=== PATIENT | female | born 1965 | race African-American/Black ===

== ENCOUNTER 2018-02-16 12:34 | Inpatient (IN) | payer OTHER ==
[~2018-02-16] VITALS: Ht 170.2 cm; Wt 92.5 kg
[~2018-02-16 12:34] MED LIST: LEVO125T PO
[2018-02-16] MEDS ORDERED: IBUPROFEN 600MG TABLET PO ONE (14:15)
[2018-02-16] MEDS ORDERED: MORPHINE SULFATE 10 MG/ML CPJ IM ONE (18:45)
[2018-02-16 19:33] LABS: BASOPHILS % 0.9 % (0.0-2.0); EOSINOPHILS % 10.3 % (0.0-5.0); HEMATOCRIT. 43.4 % (36.0-48.0); HEMOGLOBIN. 14.3 g/dL (12.0-16.0); LYMPHOCYTES % 19.8 % (20.0-50.0); MEAN CORPUSCULAR HEMOGLOBIN 31.1 pg (28.0-32.0); MEAN CORPUSCULAR VOLUME 94.3 fL (81.0-99.0); MEAN PLATELET VOLUME 8.4 fl (7.4-10.4); MONOCYTES % 2.3 % (2.0-8.0); NEUTROPHILS % 66.7 % (40.0-76.0); PLATELET 198 x1000/uL (130-400)
[2018-02-16 19:35] LABS: CHLORIDE 106 mEq/L (98-107)
[2018-02-16 19:36] LABS: INR 1.1
[2018-02-16 19:47] LABS: CLARITY URINE CLEAR (CLEAR); COLOR URINE YELLOW (YELLOW); KETONES URINE NEGATIVE (NEGATIVE); LEUKOCYTE ESTERASE URINE NEGATIVE (NEGATIVE); NITRITE URINE NEGATIVE (NEGATIVE); OCCULT BLOOD URINE NEGATIVE (NEGATIVE); PROTEIN URINE NEGATIVE (NEGATIVE); SPECIFIC GRAVITY URINE 1.012 (1.005-1.030); UROBILINOGEN URINE 0.2 E.U./dL (0.2-1.0)
[2018-02-16] MEDS ORDERED: HYDROCODONE/ACETAMINOPHEN 5/325MG TABLET PO ONE (22:45)
[2018-02-17] MEDS ORDERED: MAGNESIUM/ALUMINUM HYDROXIDE/SIMETHICONE 30ML UDC PO PRN (00:15)
[2018-02-17] MEDS ORDERED: DOCUSATE SODIUM 100MG CAPSULE PO PRN (00:15)
[2018-02-17] MEDS ORDERED: ACETAMINOPHEN 325MG TABLET PO PRN (00:15)
[2018-02-17] MEDS ORDERED: ENOXAPARIN 40MG/0.4ML SYR SUBCUT SCH (00:15)
[2018-02-17] MEDS ORDERED: ONDANSETRON HCL 4MG/2ML INJ IV PRN (00:15)
[2018-02-17 05:54] LABS: CHLORIDE 107 mEq/L (98-107)
[2018-02-17 06:04] LABS: CREATINE KINASE 122 IU/L (26-192)
[2018-02-17 06:06] LABS: CREATINE KINASE MB FRACTION 1.3 ng/mL (0.5-3.6)
[2018-02-17 08:00] VITALS: BP 172/86
[2018-02-17] MEDS: HYDROCODONE/ACETAMINOPHEN 5/325MG TABLET PO PRN ×2 (08:36→20:26)
[2018-02-17] MEDS: ENOXAPARIN 30MG/0.3ML SYR SUBCUT SCH ×2 (09:18→21:41)
[2018-02-17] MEDS: CLONIDINE 0.1MG TABLET PO PRN ×2 (09:19→20:26)
[2018-02-17 09:59] VITALS: BP 172/86
[2018-02-17 11:27] LABS: *BARBITURATES SCREEN URINE NEGATIVE (NEGATIVE); *BENZODIAZEPINES SCREEN URINE NEGATIVE (NEGATIVE); *COCAINE SCREEN URINE PRESUMTIVE POSITIVE (NEGATIVE); OPIATES URINE SCREEN NEGATIVE (NEGATIVE)
[2018-02-17 11:28] LABS: CANNABINOID URINE SCREEN NEGATIVE (NEGATIVE); PHENCYCLIDINE URINE SCREEN NEGATIVE (NEGATIVE)
[2018-02-17 11:36] LABS: *AMPHETAMINES SCREEN URINE NEGATIVE (NEGATIVE); METHADONE URINE SCREEN NEGATIVE (NEGATIVE)
[2018-02-17 12:00] VITALS: BP 156/74
[2018-02-17 16:00] VITALS: BP_SYST 115; BP_SYST 151; BP_DIAS 72; BP_DIAS 73
[2018-02-17 17:29] LABS: CREATINE KINASE 105 IU/L (26-192); CREATINE KINASE MB FRACTION < 1.0 ng/mL (0.5-3.6)
[2018-02-17 20:00] VITALS: BP 164/80
[2018-02-18] VITALS: BP 146/79
[2018-02-18] MEDS: HYDROCODONE/ACETAMINOPHEN 5/325MG TABLET PO PRN ×3 (01:29→20:15)
[2018-02-18] MEDS: IPRATROPIUM/ALBUTEROL 0.5-3(2.5)MG/3ML NEB INH PRN (03:46)
[2018-02-18 04:00] VITALS: BP 166/88
[2018-02-18 07:31] LABS: HEMATOCRIT. 39.2 % (36.0-48.0); HEMOGLOBIN. 13.3 g/dL (12.0-16.0); MEAN CORPUSCULAR HEMOGLOBIN 31.6 pg (28.0-32.0); MEAN CORPUSCULAR VOLUME 92.9 fL (81.0-99.0); MEAN PLATELET VOLUME 7.9 fl (7.4-10.4); PLATELET 171 x1000/uL (130-400); RED BLOOD CELL COUNT 4.22 mill/uL (4.2-5.4)
[2018-02-18 08:00] VITALS: BP 171/102
[2018-02-18] MEDS: ENOXAPARIN 30MG/0.3ML SYR SUBCUT SCH ×2 (08:24→20:14)
[2018-02-18] MEDS: CLONIDINE 0.1MG TABLET PO PRN (09:01)
[2018-02-18 09:03] LABS: PLATELET ESTIMATE NORMAL
[2018-02-18] MEDS: AMLODIPINE 5MG TABLET PO SCH ×2 (09:18→20:14)
[2018-02-18] MEDS: LEVOTHYROXINE SODIUM 125MCG TABLET PO SCH (11:25)
[2018-02-18 12:00] VITALS: BP 162/81
[2018-02-18 16:00] VITALS: BP 152/62
[2018-02-18 20:00] VITALS: BP 148/92
[2018-02-19] VITALS (7 sets, daily range): BP systolic 106–165; BP diastolic 76–103
[2018-02-19] MEDS: HYDROCODONE/ACETAMINOPHEN 5/325MG TABLET PO PRN ×3 (00:33→08:44)
[2018-02-19] MEDS: LEVOTHYROXINE SODIUM 125MCG TABLET PO SCH (06:21)
[2018-02-19] MEDS: CLONIDINE 0.1MG TABLET PO PRN (08:43)
[2018-02-19] MEDS: AMLODIPINE 5MG TABLET PO SCH ×2 (08:43→20:56)
[2018-02-19] MEDS: ENOXAPARIN 30MG/0.3ML SYR SUBCUT SCH ×2 (08:44→20:56)
[2018-02-19] MEDS: HYDROCODONE/ACETAMINOPHEN 10/325MG TABLET PO PRN (18:14)
[2018-02-19] MEDS: FUROSEMIDE 40MG TABLET PO SCH (18:40)
[2018-02-19] MEDS: IPRATROPIUM/ALBUTEROL 0.5-3(2.5)MG/3ML NEB INH PRN (21:32)
[2018-02-20] VITALS: BP 163/100
[2018-02-20] MEDS: CLONIDINE 0.1MG TABLET PO PRN (03:09)
[2018-02-20] MEDS: HYDROCODONE/ACETAMINOPHEN 10/325MG TABLET PO PRN ×2 (03:09→08:44)
[2018-02-20 04:00] VITALS: BP 152/99
[2018-02-20] MEDS: LEVOTHYROXINE SODIUM 125MCG TABLET PO SCH (06:23)
[2018-02-20 06:52] LABS: BASOPHILS % 1.1 % (0.0-2.0); EOSINOPHILS % 11.1 % (0.0-5.0); HEMATOCRIT. 40.9 % (36.0-48.0); HEMOGLOBIN. 13.8 g/dL (12.0-16.0); LYMPHOCYTES % 19.2 % (20.0-50.0); MEAN CORPUSCULAR HEMOGLOBIN 31.3 pg (28.0-32.0); MEAN CORPUSCULAR VOLUME 92.9 fL (81.0-99.0); MEAN PLATELET VOLUME 7.9 fl (7.4-10.4); NEUTROPHILS % 66.6 % (40.0-76.0); PLATELET 196 x1000/uL (130-400); RED CELL DISTRIBUTION WIDTH 14.7 % (11.6-14.6)
[2018-02-20 06:58] LABS: CHLORIDE 102 mEq/L (98-107)
[2018-02-20 08:00] VITALS: BP 146/78
[2018-02-20 08:44] VITALS: BP 146/78
[2018-02-20] MEDS: AMLODIPINE 5MG TABLET PO SCH (08:44)
[2018-02-20] MEDS: FUROSEMIDE 40MG TABLET PO SCH (08:44)
[2018-02-20] MEDS: ENOXAPARIN 30MG/0.3ML SYR SUBCUT SCH (08:45)
== END 2018-02-20 12:05 | disposition left against medical advice (07) | DRG 342 ==
LOC: ER 12:55 → EDBEDREQTM 18:52 → EDBEDREQ 18:52 → ENRESERV 02-17 07:59 → CANRESERV 02-17 07:59 → ENRESERV 02-17 08:03 → 6EST 02-17 08:36
PROVIDERS: ADMIT Internal Medicine; ATTEND Internal Medicine
DX: S82.031A Displaced transverse fracture of right patella, initial encounter for closed fracture (principal); I11.0 Hypertensive heart disease with heart failure; I50.9 Heart failure, unspecified; E03.9 Hypothyroidism, unspecified; E66.9 Obesity, unspecified; Z53.21 Procedure and treatment not carried out due to patient leaving prior to being seen by health care provider; J44.9 Chronic obstructive pulmonary disease, unspecified; F14.90 Cocaine use, unspecified, uncomplicated; W19.XXXA Unspecified fall, initial encounter; W18.39XA Other fall on same level, initial encounter; Y93.89 Activity, other specified; Y92.89 Other specified places as the place of occurrence of the external cause; Y99.8 Other external cause status; Z68.32 Body mass index [BMI] 32.0-32.9, adult
CPT/HCPCS: 36415; 73560; 80048; 80061; 80305; 82550; 82553; 83735; 84484; 93970; 94640; 96372; 99285; J1650; J2270; J7620; L1830

== ENCOUNTER 2019-04-21 19:05 | Emergency (ER) | payer OTHER ==
[~2019-04-21] VITALS: Ht 170.2 cm; Wt 89.0 kg
[2019-04-21] MEDS ORDERED: IPRATROPIUM/ALBUTEROL 0.5-3(2.5)MG/3ML NEB HHN ONE (21:00)
[2019-04-21 21:15] LABS: CLARITY URINE CLEAR (CLEAR); COLOR URINE YELLOW (YELLOW); KETONES URINE NEGATIVE (NEGATIVE); LEUKOCYTE ESTERASE URINE NEGATIVE (NEGATIVE); NITRITE URINE NEGATIVE (NEGATIVE); OCCULT BLOOD URINE TRACE (NEGATIVE); PROTEIN URINE TRACE (NEGATIVE); SPECIFIC GRAVITY URINE 1.011 (1.005-1.030); UROBILINOGEN URINE 0.2 E.U./dL (0.2-1.0)
[2019-04-21] MEDS ORDERED: METHYLPREDNISOLONE 4MG TABLET PO ONE (21:15)
[2019-04-21 21:36] LABS: *AMPHETAMINES SCREEN URINE NEGATIVE (NEGATIVE); CANNABINOID URINE SCREEN NEGATIVE (NEGATIVE); OPIATES URINE SCREEN NEGATIVE (NEGATIVE); PHENCYCLIDINE URINE SCREEN NEGATIVE (NEGATIVE)
[2019-04-21 21:37] LABS: *BARBITURATES SCREEN URINE NEGATIVE (NEGATIVE); *BENZODIAZEPINES SCREEN URINE NEGATIVE (NEGATIVE); *COCAINE SCREEN URINE PRESUMTIVE POSITIVE (NEGATIVE); METHADONE URINE SCREEN NEGATIVE (NEGATIVE)
[2019-04-21 21:39] VITALS: BP 143/73
[2019-04-21 21:39] LABS: HEMATOCRIT. 55.3 % (36.0-48.0); HEMOGLOBIN. 18.5 g/dL (12.0-16.0); MEAN CORPUSCULAR HEMOGLOBIN 31.6 pg (28.0-32.0); MEAN CORPUSCULAR VOLUME 94.4 fL (81.0-99.0); MEAN PLATELET VOLUME 9.2 fl (7.4-10.4); PLATELET 179 x1000/uL (130-400); RED BLOOD CELL COUNT 5.85 mill/uL (4.2-5.4); RED CELL DISTRIBUTION WIDTH 15.3 % (11.6-14.6)
[2019-04-21 21:44] LABS: CHLORIDE 103 mEq/L (98-107)
[2019-04-21 22:04] LABS: PLATELET ESTIMATE NORMAL
[2019-04-22] MEDS ORDERED: FUROSEMIDE 40MG TABLET PO ONE (03:00)
== END 2019-04-22 00:24 | disposition left against medical advice (07) ==
LOC: ER 19:05 → EDBEDREQ 23:01 → EDBEDREQTM 23:01 → ER 04-22 00:24 → CANBEDREQ 04-22 00:54
DX: J96.00 Acute respiratory failure, unspecified whether with hypoxia or hypercapnia (principal); I50.43 Acute on chronic combined systolic (congestive) and diastolic (congestive) heart failure; E87.2 Acidosis; E86.0 Dehydration; J44.1 Chronic obstructive pulmonary disease with (acute) exacerbation; D75.1 Secondary polycythemia; R60.0 Localized edema; K21.9 Gastro-esophageal reflux disease without esophagitis; F14.129 Cocaine abuse with intoxication, unspecified; R74.0 Nonspecific elevation of levels of transaminase and lactic acid dehydrogenase [LDH]; F41.9 Anxiety disorder, unspecified; F17.210 Nicotine dependence, cigarettes, uncomplicated; M19.90 Unspecified osteoarthritis, unspecified site; F15.10 Other stimulant abuse, uncomplicated
CPT/HCPCS: 36415; 71045; 80053; 80305; 81003; 83880; 84484; 85025; 93005; 94640; 99285; J7509; J7610; Z7610

== ENCOUNTER 2019-06-20 04:59 | Inpatient (IN) | payer OTHER ==
[~2019-06-20] VITALS: Ht 172.7 cm; Wt 84.8 kg
[2019-06-20] MEDS ORDERED: IPRATROPIUM BROMIDE (0.02%) 0.5MG/2.5ML NEB HHN STA (05:14)
[2019-06-20] MEDS ORDERED: METHYLPREDNISOLONE SOD SUCC 125 MG/2 ML VIAL IV STA (05:14)
[2019-06-20] MEDS ORDERED: ALBUTEROL (0.083%) 2.5MG/3ML NEB HHN STA (05:14)
[2019-06-20] MEDS ORDERED: MAGNESIUM 2 G PREMIX 50 ML IV STA (05:14)
[2019-06-20] MEDS ORDERED: LABETALOL HCL 20MG/4ML CARPUJECT IV ONE (05:45)
[2019-06-20 06:07] LABS: HEMOGLOBIN 17.5 g/dL (12.0-16.0); MEAN CORPUSCULAR HEMOGLOBIN 30.8 pg (28.0-32.0); MEAN CORPUSCULAR VOLUME 93.4 fL (81.0-99.0); PLATELET 207 x1000/uL (130-400); RED BLOOD CELL COUNT 5.67 mill/uL (4.2-5.4); RED CELL DISTRIBUTION WIDTH 15.8 % (11.6-14.6)
[2019-06-20 06:16] LABS: CHLORIDE 112 mEq/L (98-107)
[2019-06-20] MEDS ORDERED: CLONIDINE 0.1MG TABLET PO ONE (10:15)
[2019-06-20] MEDS ORDERED: ACETAMINOPHEN 325MG TABLET PO PRN (10:45)
[2019-06-20] MEDS ORDERED: IPRATROPIUM/ALBUTEROL 0.5-3(2.5)MG/3ML NEB HHN PRN (10:45)
[2019-06-20 11:35] VITALS: BP 180/89
[2019-06-20 11:41] VITALS: BP 180/89
[2019-06-20] MEDS ORDERED: PNEUMOCOCCAL 23-VAL P-SAC VAC 0.5 ML IM ONE (12:30)
[2019-06-20] MEDS ORDERED: INFLUENZA VIRUS VACCINE(AFLURIA) 0.5ML SYR IM ONE (12:30)
[2019-06-20] MEDS: HYDRALAZINE HCL 50MG TABLET PO SCH ×2 (13:31→21:07)
[2019-06-20] MEDS: LOSARTAN POTASSIUM 100 MG TABLET PO SCH (13:31)
[2019-06-20] MEDS: ENOXAPARIN 40MG/0.4ML SYR SUBCUT SCH (13:32)
[2019-06-20 18:10] VITALS: BP 157/100
[2019-06-20] MEDS: FUROSEMIDE 40MG/4ML VIAL IVP SCH (18:33)
[2019-06-20 20:00] VITALS: BP 173/83
[2019-06-20] MEDS: CARVEDILOL 12.5MG TABLET PO SCH (20:08)
[2019-06-20] MEDS ORDERED: CARVEDILOL 12.5MG TABLET PO SCH (21:00)
[2019-06-20 22:00] VITALS: BP 146/75
[2019-06-21] VITALS (7 sets, daily range): BP systolic 90–192; BP diastolic 78–107
[2019-06-21] MEDS: CLONIDINE 0.1MG TABLET PO PRN ×2 (04:24→16:29)
[2019-06-21] MEDS: FUROSEMIDE 40MG/4ML VIAL IVP SCH ×2 (06:25→16:38)
[2019-06-21] MEDS: HYDRALAZINE HCL 50MG TABLET PO SCH (06:25)
[2019-06-21] MEDS ORDERED: LEVOTHYROXINE SODIUM 125MCG TABLET PO SCH (07:30)
[2019-06-21] MEDS: CARVEDILOL 12.5MG TABLET PO SCH (09:25)
[2019-06-21] MEDS: LOSARTAN POTASSIUM 100 MG TABLET PO SCH (09:25)
[2019-06-21] MEDS: ENOXAPARIN 40MG/0.4ML SYR SUBCUT SCH (09:28)
[2019-06-21] MEDS ORDERED: SPIRONOLACTONE 25MG TABLET PO SCH (13:00)
[2019-06-21] MEDS ORDERED: HYDRALAZINE HCL 100MG TABLET PO SCH (14:00)
[2019-06-21] MEDS ORDERED: POTASSIUM CHLORIDE 20MEQ TABLET SR PO NR (16:00)
[2019-06-21] MEDS ORDERED: POTASSIUM CHLORIDE 20MEQ TABLET SR PO ONE (16:15)
[2019-06-21 18:25] LABS: *AMPHETAMINES SCREEN URINE NEGATIVE (NEGATIVE); *BARBITURATES SCREEN URINE NEGATIVE (NEGATIVE)
[2019-06-21 18:26] LABS: *BENZODIAZEPINES SCREEN URINE NEGATIVE (NEGATIVE); *COCAINE SCREEN URINE PRESUMTIVE POSITIVE (NEGATIVE); METHADONE URINE SCREEN NEGATIVE (NEGATIVE); OPIATES URINE SCREEN NEGATIVE (NEGATIVE); PHENCYCLIDINE URINE SCREEN NEGATIVE (NEGATIVE)
[2019-06-21 18:27] LABS: CANNABINOID URINE SCREEN NEGATIVE (NEGATIVE)
== END 2019-06-21 18:30 | disposition home or self-care (01) | DRG 816 ==
LOC: ER 05:11 → 5EST 05:54 → ENRESERV 10:21
PROVIDERS: ADMIT Internal Medicine; ATTEND Internal Medicine
DX: T40.5X1A Poisoning by cocaine, accidental (unintentional), initial encounter (principal); J96.01 Acute respiratory failure with hypoxia; I50.23 Acute on chronic systolic (congestive) heart failure; E44.0 Moderate protein-calorie malnutrition; J18.9 Pneumonia, unspecified organism; E87.0 Hyperosmolality and hypernatremia; E87.8 Other disorders of electrolyte and fluid balance, not elsewhere classified; I13.0 Hypertensive heart and chronic kidney disease with heart failure and stage 1 through stage 4 chronic kidney disease, or unspecified chronic kidney disease; I27.20 Pulmonary hypertension, unspecified; E66.9 Obesity, unspecified; E89.0 Postprocedural hypothyroidism; F14.90 Cocaine use, unspecified, uncomplicated; F17.210 Nicotine dependence, cigarettes, uncomplicated; I42.9 Cardiomyopathy, unspecified; J44.0 Chronic obstructive pulmonary disease with (acute) lower respiratory infection; J44.1 Chronic obstructive pulmonary disease with (acute) exacerbation; J68.0 Bronchitis and pneumonitis due to chemicals, gases, fumes and vapors; N18.2 Chronic kidney disease, stage 2 (mild); F41.9 Anxiety disorder, unspecified; K21.9 Gastro-esophageal reflux disease without esophagitis; M19.90 Unspecified osteoarthritis, unspecified site; Z91.19 Patient's noncompliance with other medical treatment and regimen; Z91.14 Patient's other noncompliance with medication regimen; Z68.28 Body mass index [BMI] 28.0-28.9, adult; Y92.89 Other specified places as the place of occurrence of the external cause; Z71.51 Drug abuse counseling and surveillance of drug abuser; Z71.6 Tobacco abuse counseling; Z60.2 Problems related to living alone
CPT/HCPCS: 36415; 71045; 73560; 80048; 80053; 80305; 83880; 85027; 90686; 90732; 93005; 93306; 94644; 99291; J1650; J1940; J2930; J3475; J3490

== ENCOUNTER 2019-10-02 02:11 | Inpatient (IN) | payer OTHER ==
[~2019-10-02] VITALS: Ht 167.6 cm; Wt 100.2 kg
[2019-10-02] MEDS ORDERED: IPRATROPIUM BROMIDE (0.02%) 0.5MG/2.5ML NEB HHN STA (03:11)
[2019-10-02] MEDS ORDERED: PREDNISONE 20MG TABLET PO STA (03:11)
[2019-10-02] MEDS ORDERED: ALBUTEROL (0.083%) 2.5MG/3ML NEB HHN STA (03:11)
[2019-10-02 04:49] LABS: BG BASE EXCESS 2.4 mmol/L (-2.0-2.0); BG CARBOXYHEMOGLOBIN 2.5 % (0.5-1.5); BG FRACTION INSPIRED OXYGEN 28; BG HCO3 ACT 30.8 mmol/L (22.0-26.0); BG METHEMOGLOBIN 0.3 % (0.0-1.5); BG OXYGEN SATURATION 91.8 % (92.0-98.5); BG OXYHEMOGLOBIN 89.2 % (94.0-97.0); BG PCO2 62.8 mmHg (35.0-45.0); BG PH 7.309 (7.350-7.450); BG PO2 64.4 mmHg (75.0-100.0); BG SAMPLE SITE LEFT RADIAL; BG TOTAL HEMOGLOBIN 16.7 g/dL (12.0-18.0); BG VENT MODE NASAL CANNULA
[2019-10-02 04:53] LABS: BASOPHILS % 0.8 % (0.0-2.0); EOSINOPHILS % 3.6 % (0.0-5.0); HEMATOCRIT. 49.2 % (36.0-48.0); HEMOGLOBIN. 16.1 g/dL (12.0-16.0); MEAN CORPUSCULAR HEMOGLOBIN 31.1 pg (28.0-32.0); MEAN CORPUSCULAR VOLUME 95.2 fL (81.0-99.0); MEAN PLATELET VOLUME 8.1 fl (7.4-10.4); MONOCYTES % 5.8 % (2.0-8.0); NEUTROPHILS % 68.8 % (40.0-76.0); PLATELET 171 x1000/uL (130-400); RED BLOOD CELL COUNT 5.17 mill/uL (4.2-5.4); RED CELL DISTRIBUTION WIDTH 18.2 % (11.6-14.6)
[2019-10-02 04:57] LABS: CHLORIDE 105 mEq/L (98-107)
[2019-10-02 08:00] VITALS: BP 168/115
[2019-10-02 08:30] VITALS: BP 168/115
[2019-10-02] MEDS ORDERED: ACETAMINOPHEN 325MG TABLET PO PRN (08:30)
[2019-10-02] MEDS ORDERED: ALBUTEROL 6.7GM HFA INHALER ORI PRN (08:30)
[2019-10-02] MEDS ORDERED: ONDANSETRON HCL 4MG/2ML INJ IV PRN (08:30)
[2019-10-02] MEDS ORDERED: FUROSEMIDE 40MG/4ML VIAL IVP SCH (09:00)
[2019-10-02] MEDS: LEVOTHYROXINE SODIUM 125MCG TABLET PO SCH (09:06)
[2019-10-02] MEDS: AZITHROMYCIN 500 MG TABLET PO SCH (09:06)
[2019-10-02] MEDS: AMLODIPINE 10MG TABLET PO SCH (09:06)
[2019-10-02] MEDS: CEFTRIAXONE 1,000 MG in DEXTROSE 5% WATER 50 ML IV SCH (10:42)
[2019-10-02] MEDS ORDERED: SODIUM CHLORIDE 0.9% 500 ML IV ONE (10:45)
[2019-10-02 11:37] LABS: T4 FREE 0.5 ng/dL (0.76-1.46)
[2019-10-02 12:00] VITALS: BP 171/94
[2019-10-02] MEDS: METHYLPREDNISOLONE SOD SUCC 40 MG/ML VIAL IV SCH ×2 (13:00→22:41)
[2019-10-02 14:44] LABS: CLARITY URINE CLEAR (CLEAR); COLOR URINE YELLOW (YELLOW); KETONES URINE NEGATIVE (NEGATIVE); LEUKOCYTE ESTERASE URINE NEGATIVE (NEGATIVE); NITRITE URINE NEGATIVE (NEGATIVE); OCCULT BLOOD URINE NEGATIVE (NEGATIVE); PH URINE 6.5 (4.5-8.0); PROTEIN URINE NEGATIVE (NEGATIVE); UROBILINOGEN URINE 0.2 E.U./dL (0.2-1.0)
[2019-10-02 15:26] LABS: *AMPHETAMINES SCREEN URINE NEGATIVE (NEGATIVE); *BARBITURATES SCREEN URINE NEGATIVE (NEGATIVE); *BENZODIAZEPINES SCREEN URINE NEGATIVE (NEGATIVE); *COCAINE SCREEN URINE PRESUMTIVE POSITIVE (NEGATIVE); CANNABINOID URINE SCREEN NEGATIVE (NEGATIVE); METHADONE URINE SCREEN NEGATIVE (NEGATIVE); OPIATES URINE SCREEN NEGATIVE (NEGATIVE); PHENCYCLIDINE URINE SCREEN NEGATIVE (NEGATIVE)
[2019-10-02 15:41] VITALS: BP 178/102
[2019-10-02] MEDS ORDERED: HYDRALAZINE HCL 100MG TABLET PO NR (15:45)
[2019-10-02] MEDS: ALBUTEROL 6.7GM HFA INHALER ORI SCH ×2 (16:08→17:45)
[2019-10-02] MEDS: MONTELUKAST SODIUM 10MG TABLET PO SCH (16:11)
[2019-10-02] MEDS ORDERED: CLONIDINE 0.1MG TABLET PO NR (17:53)
[2019-10-02] MEDS ORDERED: ENOXAPARIN 100MG/ML SYR SUBCUT SCH (18:00)
[2019-10-02 20:00] VITALS: BP 158/100
[2019-10-02] MEDS: HYDRALAZINE HCL 100MG TABLET PO SCH (22:40)
[2019-10-02] MEDS: CLONIDINE 0.1MG TABLET PO SCH (22:40)
[2019-10-03] VITALS: BP 145/88
[2019-10-03] MEDS: ALBUTEROL 6.7GM HFA INHALER ORI SCH ×3 (00:09→11:27)
[2019-10-03 00:40] VITALS: BP 154/97
[2019-10-03 04:00] VITALS: BP 146/91
[2019-10-03] MEDS: HYDRALAZINE HCL 100MG TABLET PO SCH ×3 (05:48→21:05)
[2019-10-03] MEDS: METHYLPREDNISOLONE SOD SUCC 40 MG/ML VIAL IV SCH (05:48)
[2019-10-03] MEDS: LEVOTHYROXINE SODIUM 125MCG TABLET PO SCH (05:48)
[2019-10-03] MEDS: CLONIDINE 0.1MG TABLET PO SCH ×3 (05:48→21:04)
[2019-10-03 07:53] LABS: INR 1.1; PROTHROMBIN TIME 11.2 sec (9.6-11.0)
[2019-10-03 08:00] VITALS: BP 154/100
[2019-10-03] MEDS: CEFTRIAXONE 1,000 MG in DEXTROSE 5% WATER 50 ML IV SCH (08:44)
[2019-10-03] MEDS: AMLODIPINE 10MG TABLET PO SCH (08:45)
[2019-10-03] MEDS: AZITHROMYCIN 500 MG TABLET PO SCH (08:45)
[2019-10-03] MEDS: FUROSEMIDE 40MG TABLET PO SCH (08:45)
[2019-10-03] MEDS ORDERED: ENOXAPARIN 100MG/ML SYR SUBCUT SCH (09:00)
[2019-10-03] MEDS ORDERED: IPRATROPIUM/ALBUTEROL 0.5-3(2.5)MG/3ML NEB HHN PRN (14:15)
[2019-10-03 16:00] VITALS: BP 159/87
[2019-10-03] MEDS: LOSARTAN POTASSIUM 50 MG TABLET PO SCH (16:15)
[2019-10-03] MEDS: MONTELUKAST SODIUM 10MG TABLET PO SCH (16:16)
[2019-10-03 20:00] VITALS: BP 152/93
[2019-10-03] MEDS: CARVEDILOL 6.25 MG TABLET PO SCH (21:05)
[2019-10-03] MEDS: IPRATROPIUM/ALBUTEROL 0.5-3(2.5)MG/3ML NEB HHN SCH (21:16)
[2019-10-03] MEDS: BUDESONIDE 0.5MG/2ML NEB HHN SCH (21:16)
[2019-10-04] VITALS: BP 118/67
[2019-10-04] MEDS: IPRATROPIUM/ALBUTEROL 0.5-3(2.5)MG/3ML NEB HHN SCH ×2 (02:29→08:55)
[2019-10-04 04:00] VITALS: BP 154/99
[2019-10-04] MEDS: LEVOTHYROXINE SODIUM 125MCG TABLET PO SCH (06:10)
[2019-10-04] MEDS: HYDRALAZINE HCL 100MG TABLET PO SCH (06:10)
[2019-10-04] MEDS: CLONIDINE 0.1MG TABLET PO SCH (06:10)
[2019-10-04 08:00] VITALS: BP 143/99
[2019-10-04] MEDS: FUROSEMIDE 40MG TABLET PO SCH (08:50)
[2019-10-04] MEDS: LOSARTAN POTASSIUM 50 MG TABLET PO SCH (08:50)
[2019-10-04] MEDS: AMLODIPINE 10MG TABLET PO SCH (08:50)
[2019-10-04] MEDS: AZITHROMYCIN 500 MG TABLET PO SCH (08:50)
[2019-10-04] MEDS: CARVEDILOL 6.25 MG TABLET PO SCH (08:50)
[2019-10-04] MEDS: BUDESONIDE 0.5MG/2ML NEB HHN SCH (08:55)
[2019-10-04] MEDS ORDERED: PREDNISONE 20MG TABLET PO SCH (09:00)
[2019-10-04] MEDS ORDERED: ENOXAPARIN 30MG/0.3ML SYR SUBCUT SCH (09:00)
[2019-10-04] MEDS: CEFTRIAXONE 1,000 MG in DEXTROSE 5% WATER 50 ML IV SCH (09:47)
== END 2019-10-04 13:35 | disposition home or self-care (01) | DRG 469 ==
LOC: ER 02:11 → 7WST 04:56 → ENRESERV 07:27 → 5WST 10-03 00:27
PROVIDERS: ADMIT Internal Medicine; ATTEND Internal Medicine
DX: N17.0 Acute kidney failure with tubular necrosis (principal); I11.0 Hypertensive heart disease with heart failure; J68.0 Bronchitis and pneumonitis due to chemicals, gases, fumes and vapors; I50.23 Acute on chronic systolic (congestive) heart failure; I42.9 Cardiomyopathy, unspecified; E66.9 Obesity, unspecified; Z20.828 Contact with and (suspected) exposure to other viral communicable diseases; J96.01 Acute respiratory failure with hypoxia; E43 Unspecified severe protein-calorie malnutrition; I16.0 Hypertensive urgency; E89.0 Postprocedural hypothyroidism; F17.210 Nicotine dependence, cigarettes, uncomplicated; I27.20 Pulmonary hypertension, unspecified; J45.901 Unspecified asthma with (acute) exacerbation; J44.1 Chronic obstructive pulmonary disease with (acute) exacerbation; J44.0 Chronic obstructive pulmonary disease with (acute) lower respiratory infection; Z68.35 Body mass index [BMI] 35.0-35.9, adult; Z91.19 Patient's noncompliance with other medical treatment and regimen; Z91.14 Patient's other noncompliance with medication regimen; Z71.51 Drug abuse counseling and surveillance of drug abuser; Z71.3 Dietary counseling and surveillance; Z71.6 Tobacco abuse counseling; F14.129 Cocaine abuse with intoxication, unspecified
CPT/HCPCS: 36415; 36600; 71045; 80048; 80053; 80305; 81003; 82375; 82805; 83605; 83880; 84439; 84443; 84484; 85025; 93005; 94640; 99285; J0696; J1650; J1940; J2920; J7060; J7512; J7626; U0003-CS

== ENCOUNTER 2019-10-08 21:05 | Inpatient (IN) | payer OTHER ==
[~2019-10-08] VITALS: Ht 167.6 cm; Wt 95.7 kg
[2019-10-08] MEDS ORDERED: ALBUTEROL 6.7GM HFA INHALER ORI ONE (23:45)
[2019-10-09 00:28] LABS: BASOPHILS % 0.6 % (0.0-2.0); EOSINOPHILS % 3.6 % (0.0-5.0); HEMATOCRIT. 46.2 % (36.0-48.0); HEMOGLOBIN. 15.1 g/dL (12.0-16.0); MEAN CORPUSCULAR HEMOGLOBIN 31.4 pg (28.0-32.0); MEAN CORPUSCULAR VOLUME 96.2 fL (81.0-99.0); MONOCYTES % 7.3 % (2.0-8.0); NEUTROPHILS % 70.5 % (40.0-76.0); PLATELET 190 x1000/uL (130-400); RED CELL DISTRIBUTION WIDTH 18.4 % (11.6-14.6)
[2019-10-09 00:37] LABS: CHLORIDE 107 mEq/L (98-107)
[2019-10-09 00:41] LABS: ETHANOL BLOOD < 10 mg/dL
[2019-10-09] MEDS ORDERED: FUROSEMIDE 40MG/4ML VIAL IVP NR ×2 (02:00→10:00)
[2019-10-09 03:12] LABS: CLARITY URINE CLEAR (CLEAR); COLOR URINE YELLOW (YELLOW); KETONES URINE NEGATIVE (NEGATIVE); LEUKOCYTE ESTERASE URINE NEGATIVE (NEGATIVE); NITRITE URINE NEGATIVE (NEGATIVE); OCCULT BLOOD URINE NEGATIVE (NEGATIVE); PROTEIN URINE 1+ (NEGATIVE); SPECIFIC GRAVITY URINE 1.017 (1.005-1.030)
[2019-10-09] MEDS ORDERED: IBUPROFEN 600MG TABLET PO PRN (03:15)
[2019-10-09] MEDS ORDERED: ALBUTEROL 6.7GM HFA INHALER ORI PRN (10:00)
[2019-10-09] MEDS ORDERED: ONDANSETRON HCL 4MG/2ML INJ IV PRN (10:00)
[2019-10-09] MEDS ORDERED: ACETAMINOPHEN 325MG TABLET PO PRN (10:00)
[2019-10-09] MEDS ORDERED: FUROSEMIDE 20MG/2ML VIAL IVP NR (11:23)
[2019-10-09] MEDS: LOSARTAN POTASSIUM 50 MG TABLET PO SCH (11:29)
[2019-10-09 12:00] VITALS: BP 186/90
[2019-10-09 12:16] VITALS: BP 186/90
[2019-10-09 14:24] VITALS: BP 154/78
[2019-10-09 16:00] VITALS: BP 176/115
[2019-10-09] MEDS: FUROSEMIDE 40MG/4ML VIAL IVP SCH (16:39)
[2019-10-09 20:00] VITALS: BP 168/115
[2019-10-09] MEDS ORDERED: ALBUTEROL (0.083%) 2.5MG/3ML NEB HHN PRN (22:00)
[2019-10-09] MEDS: ENOXAPARIN 30MG/0.3ML SYR SUBCUT SCH (23:06)
[2019-10-10] VITALS: BP 146/88
[2019-10-10 04:00] VITALS: BP 162/114
[2019-10-10] MEDS: FUROSEMIDE 40MG/4ML VIAL IVP SCH (06:21)
[2019-10-10 08:00] VITALS: BP 155/100
[2019-10-10] MEDS: ENOXAPARIN 30MG/0.3ML SYR SUBCUT SCH (09:17)
[2019-10-10] MEDS: LOSARTAN POTASSIUM 50 MG TABLET PO SCH (09:17)
[2019-10-10 12:00] VITALS: BP 156/106
[2019-10-10] MEDS ORDERED: LEVOTHYROXINE SODIUM 150MCG TABLET PO SCH (13:45)
[2019-10-10] MEDS ORDERED: COR12 PO (14:43)
[2019-10-10] MEDS ORDERED: FURO-151 MT (14:43)
[2019-10-10] MEDS ORDERED: FLUT1DIS3 INH (14:43)
[2019-10-10] MEDS ORDERED: ALBU18HF2 IH (14:43)
[2019-10-10] MEDS ORDERED: SYN150 PO (14:43)
[2019-10-10] MEDS ORDERED: LOSA50TA3 PO (14:43)
[2019-10-10 15:41] VITALS: BP 156/106
[2019-10-10] MEDS ORDERED: LOSARTAN POTASSIUM 50 MG TABLET PO SCH (17:00)
[2019-10-10] MEDS ORDERED: CARVEDILOL 12.5MG TABLET PO SCH (21:00)
== END 2019-10-10 16:15 | disposition home or self-care (01) | DRG 816 ==
LOC: ER 21:05 → 7WST 10-09 03:13 → EDBEDREQ 10-09 03:19 → EDBEDREQTM 10-09 03:19 → ENRESERV 10-09 07:53 → 6WST 10-09 21:52
PROVIDERS: ADMIT Internal Medicine; ATTEND Internal Medicine
DX: T40.5X1A Poisoning by cocaine, accidental (unintentional), initial encounter (principal); I11.0 Hypertensive heart disease with heart failure; E43 Unspecified severe protein-calorie malnutrition; E66.9 Obesity, unspecified; E89.0 Postprocedural hypothyroidism; F14.90 Cocaine use, unspecified, uncomplicated; F17.210 Nicotine dependence, cigarettes, uncomplicated; I42.9 Cardiomyopathy, unspecified; I50.23 Acute on chronic systolic (congestive) heart failure; J68.0 Bronchitis and pneumonitis due to chemicals, gases, fumes and vapors; Y92.89 Other specified places as the place of occurrence of the external cause; Z91.14 Patient's other noncompliance with medication regimen; Z20.828 Contact with and (suspected) exposure to other viral communicable diseases; J96.00 Acute respiratory failure, unspecified whether with hypoxia or hypercapnia; Z68.34 Body mass index [BMI] 34.0-34.9, adult
CPT/HCPCS: 36415; 71045; 80053; 80320; 81003; 83880; 84484; 85025; 87635; 93005; 94640; 99285; J1650; J1940; G0480

== ENCOUNTER 2020-01-07 17:31 | Emergency (ER) | payer OTHER ==
[~2020-01-07] VITALS: Ht 167.6 cm; Wt 100.0 kg
[~2020-01-07 17:31] MED LIST changes: +ALBU18HF2 IH; +COR12 PO; +FLUT1DIS3 INH; +FURO-151 MT; +LOSA50TA3 PO; +SYN150 PO
[2020-01-07] MEDS ORDERED: ALBUTEROL (0.083%) 2.5MG/3ML NEB HHN STA (18:54)
[2020-01-07 18:56] LABS: BASOPHILS % 0.8 % (0.0-2.0); EOSINOPHILS % 4.4 % (0.0-5.0); HEMOGLOBIN. 17.8 g/dL (12.0-16.0); LYMPHOCYTES % 17.9 % (20.0-50.0); MEAN CORPUSCULAR VOLUME 89.8 fL (81.0-99.0); MEAN PLATELET VOLUME 7.9 fl (7.4-10.4); MONOCYTES % 7.8 % (2.0-8.0); NEUTROPHILS % 69.1 % (40.0-76.0); PLATELET 203 x1000/uL (130-400); RED BLOOD CELL COUNT 6.13 mill/uL (4.2-5.4); RED CELL DISTRIBUTION WIDTH 17.2 % (11.6-14.6)
[2020-01-07 19:01] LABS: CHLORIDE 104 mEq/L (98-107)
[2020-01-07 19:15] LABS: CLARITY URINE CLEAR (CLEAR); COLOR URINE YELLOW (YELLOW); KETONES URINE NEGATIVE (NEGATIVE); LEUKOCYTE ESTERASE URINE NEGATIVE (NEGATIVE); NITRITE URINE NEGATIVE (NEGATIVE); OCCULT BLOOD URINE NEGATIVE (NEGATIVE); PROTEIN URINE 2+ (NEGATIVE); SPECIFIC GRAVITY URINE 1.017 (1.005-1.030); UROBILINOGEN URINE 0.2 E.U./dL (0.2-1.0)
[2020-01-07] MEDS ORDERED: ASPIRIN 81MG TABLET PO ONE (19:15)
[2020-01-07] MEDS ORDERED: AMLODIPINE 5MG TABLET PO ONE (19:15)
[2020-01-07] MEDS ORDERED: FUROSEMIDE 40MG/4ML VIAL IV ONE (19:15)
[2020-01-07 22:30] VITALS: BP 166/72
[2020-01-07] MEDS ORDERED: NITROGLYCERIN 0.1MG/HR PATCH TOP ONE (23:00)
[2020-01-07] MEDS ORDERED: ENOXAPARIN 100MG/ML SYR SUBCUT ONE (23:00)
== END 2020-01-07 23:11 | disposition short-term general hospital (02) ==
LOC: ER 17:31 → CANBEDREQ 01-08 03:13
DX: R06.03 Acute respiratory distress (principal); I21.3 ST elevation (STEMI) myocardial infarction of unspecified site; I11.0 Hypertensive heart disease with heart failure; I50.9 Heart failure, unspecified; J45.909 Unspecified asthma, uncomplicated; J44.1 Chronic obstructive pulmonary disease with (acute) exacerbation; Z79.899 Other long term (current) drug therapy
CPT/HCPCS: 36415; 71045; 80053; 81003; 83880; 84484; 85025; 93005; 94640; 96372; 96374; 99285; J1650; J1940; Z7610

== ENCOUNTER 2020-11-08 04:36 | Inpatient (IN) | payer OTHER ==
[~2020-11-08] VITALS: Ht 167.6 cm; Wt 93.9 kg
[~2020-11-08 04:36] MED LIST changes: -LEVO125T PO
[2020-11-08] MEDS ORDERED: ALBUTEROL (0.083%) 2.5MG/3ML NEB HHN STA (04:43)
[2020-11-08] MEDS ORDERED: MAGNESIUM 2 G PREMIX 50 ML IV STA (04:43)
[2020-11-08] MEDS: METHYLPREDNISOLONE SOD SUCC 125 MG/2 ML VIAL IV STA ×2 (04:43→07:45)
[2020-11-08] MEDS ORDERED: IPRATROPIUM BROMIDE (0.02%) 0.5MG/2.5ML NEB HHN STA (04:43)
[2020-11-08 05:19] LABS: BASOPHILS % 0.6 % (0.0-2.0); EOSINOPHILS % 1.2 % (0.0-5.0); HEMOGLOBIN. 15.8 g/dL (12.0-16.0); MEAN CORPUSCULAR HEMOGLOBIN 27.9 pg (28.0-32.0); MEAN CORPUSCULAR VOLUME 88.1 fL (81.0-99.0); MEAN PLATELET VOLUME 7.5 fl (7.4-10.4); MONOCYTES % 8.6 % (2.0-8.0); NEUTROPHILS % 77.6 % (40.0-76.0); PLATELET 212 x1000/uL (130-400); RED BLOOD CELL COUNT 5.68 mill/uL (4.2-5.4); RED CELL DISTRIBUTION WIDTH 20.2 % (11.6-14.6)
[2020-11-08 05:24] LABS: CHLORIDE 96 mEq/L (98-107)
[2020-11-08] MEDS ORDERED: FUROSEMIDE 100MG/10ML VIAL IVP ONE (07:30)
[2020-11-08] MEDS ORDERED: ASPIRIN 325MG EC TABLET PO ONE (08:45)
[2020-11-08] MEDS ORDERED: LORAZEPAM 1MG TABLET PO PRN (20:15)
[2020-11-08] MEDS ORDERED: IPRATROPIUM BROMIDE (0.02%) 0.5MG/2.5ML NEB HHN NR (20:30)
[2020-11-08] MEDS ORDERED: ALBUTEROL (0.083%) 2.5MG/3ML NEB HHN NR (20:30)
[2020-11-09] VITALS (52 sets, daily range): BP systolic 89–138; BP diastolic 49–86
[2020-11-09] MEDS: IPRATROPIUM/ALBUTEROL 0.5-3(2.5)MG/3ML NEB HHN SCH ×2 (01:10→21:20)
[2020-11-09] MEDS ORDERED: LORAZEPAM 1MG TABLET PO PRN (01:15)
[2020-11-09] MEDS ORDERED: ALBUTEROL (0.083%) 2.5MG/3ML NEB HHN PRN (01:30)
[2020-11-09] MEDS ORDERED: HYDROCODONE/ACETAMINOPHEN 5/325MG TABLET PO PRN (01:30)
[2020-11-09] MEDS: CEFTRIAXONE 1,000 MG in DEXTROSE 5% WATER 50 ML IV SCH ×2 (02:00→03:29)
[2020-11-09] MEDS ORDERED: LORAZEPAM 2MG/ML CPJ IV PRN (02:30)
[2020-11-09] MEDS: AZITHROMYCIN 500 MG in DEXT 5% WATER 250 ML IV SCH ×2 (03:13→04:26)
[2020-11-09 06:58] LABS: BASOPHILS % 0.5 % (0.0-2.0); EOSINOPHILS % 0.6 % (0.0-5.0); HEMATOCRIT. 54.3 % (36.0-48.0); HEMOGLOBIN. 16.6 g/dL (12.0-16.0); LYMPHOCYTES % 11.5 % (20.0-50.0); MEAN CORPUSCULAR VOLUME 91.4 fL (81.0-99.0); MEAN PLATELET VOLUME 7.6 fl (7.4-10.4); MONOCYTES % 7.6 % (2.0-8.0); NEUTROPHILS % 79.8 % (40.0-76.0); PLATELET 233 x1000/uL (130-400); RED BLOOD CELL COUNT 5.94 mill/uL (4.2-5.4); RED CELL DISTRIBUTION WIDTH 20.6 % (11.6-14.6)
[2020-11-09] MEDS ORDERED: SODIUM CHLORIDE 0.9% 10ML VIAL ONE (07:58)
[2020-11-09] MEDS ORDERED: VECURONIUM BROMIDE 10 MG/VIAL IV ONE (07:58)
[2020-11-09] MEDS ORDERED: ETOMIDATE 2MG/ML 10ML VIAL IV ONE (07:58)
[2020-11-09] MEDS ORDERED: ENOXAPARIN 30MG/0.3ML SYR SUBCUT SCH (09:00)
[2020-11-09] MEDS ORDERED: ENOXAPARIN 40MG/0.4ML SYR SUBCUT SCH ×2 (09:00→21:00)
[2020-11-09] MEDS ORDERED: DEXAMETHASONE 10 MG/ML VIAL IV SCH (09:00)
[2020-11-09] MEDS ORDERED: FUROSEMIDE 40MG/4ML VIAL IVP SCH (11:00)
[2020-11-09] MEDS ORDERED: FENTANYL CITRATE/PF 1,000 MCG in SODIUM CHLORIDE 0.9% 80 ML IV PRN (11:00)
[2020-11-09] MEDS ORDERED: NALOXONE HCL 0.4MG/ML VIAL IV PRN (11:15)
[2020-11-09] MEDS: PROPOFOL 10MG/ML 100ML 100 ML IV PRN ×2 (11:55→17:54)
[2020-11-09] MEDS: PANTOPRAZOLE SODIUM 40 MG/VIAL IV SCH (12:28)
[2020-11-09] MEDS: FENTANYL CITRATE 2,500 MCG in SODIUM CHLORIDE 0.9% 200 ML IV PRN (12:29)
[2020-11-09] MEDS ORDERED: IPRATROPIUM/ALBUTEROL 0.5-3(2.5)MG/3ML NEB HHN PRN (13:15)
[2020-11-09 13:26] LABS: BG BASE EXCESS 0.9 mmol/L (-2.0-2.0); BG DEOXYHEMOGLOBIN 6.3 % (0.0-5.0); BG FRACTION INSPIRED OXYGEN 100; BG HCO3 ACT 26.4 mmol/L (22.0-26.0); BG METHEMOGLOBIN 0.3 % (0.0-1.5); BG OXYGEN SATURATION 93.6 % (92.0-98.5); BG OXYHEMOGLOBIN 91.4 % (94.0-97.0); BG PCO2 45.1 mmHg (35.0-45.0); BG PH 7.385 (7.350-7.450); BG PO2 61.2 mmHg (75.0-100.0); BG SAMPLE SITE RIGHT RADIAL; BG TOTAL HEMOGLOBIN 16.6 g/dL (12.0-18.0); BG VENT MODE VENT - AC
[2020-11-09] MEDS: PIPERACILLIN/TAZOBACTAM 3.375 G in DEXTROSE 5% WATER 50 ML IV SCH (14:00)
[2020-11-09 14:50] LABS: CLARITY URINE CLEAR (CLEAR); COLOR URINE YELLOW (YELLOW); KETONES URINE NEGATIVE (NEGATIVE); LEUKOCYTE ESTERASE URINE NEGATIVE (NEGATIVE); NITRITE URINE NEGATIVE (NEGATIVE); OCCULT BLOOD URINE 1+ (NEGATIVE); PROTEIN URINE NEGATIVE (NEGATIVE); SPECIFIC GRAVITY URINE 1.008 (1.005-1.030); UROBILINOGEN URINE 0.2 E.U./dL (0.2-1.0)
[2020-11-09 15:43] LABS: BG CARBOXYHEMOGLOBIN 1.4 % (0.5-1.5); BG DEOXYHEMOGLOBIN 2.6 % (0.0-5.0); BG FRACTION INSPIRED OXYGEN 100; BG HCO3 ACT 28.2 mmol/L (22.0-26.0); BG METHEMOGLOBIN 0.5 % (0.0-1.5); BG OXYGEN SATURATION 97.3 % (92.0-98.5); BG OXYHEMOGLOBIN 95.5 % (94.0-97.0); BG PCO2 44.5 mmHg (35.0-45.0); BG PH 7.419 (7.350-7.450); BG PO2 87.7 mmHg (75.0-100.0); BG SAMPLE SITE RIGHT RADIAL; BG TOTAL HEMOGLOBIN 16.8 g/dL (12.0-18.0); BG TOTAL RESPIRATORY RATE 18 b/min; BG VENT MODE VENT- PRVC
[2020-11-10] VITALS (96 sets, daily range): BP systolic 78–138; BP diastolic 51–100
[2020-11-10] MEDS: PIPERACILLIN/TAZOBACTAM 3.375 G in DEXTROSE 5% WATER 50 ML IV SCH ×2 (01:17→14:14)
[2020-11-10] MEDS: PROPOFOL 10MG/ML 100ML 100 ML IV PRN ×4 (01:54→18:17)
[2020-11-10 05:44] LABS: BASOPHILS % 0.2 % (0.0-2.0); HEMATOCRIT. 46.7 % (36.0-48.0); HEMOGLOBIN. 15.2 g/dL (12.0-16.0); LYMPHOCYTES % 12.2 % (20.0-50.0); MEAN CORPUSCULAR HEMOGLOBIN 27.8 pg (28.0-32.0); MEAN CORPUSCULAR VOLUME 85.3 fL (81.0-99.0); MEAN PLATELET VOLUME 7.7 fl (7.4-10.4); MONOCYTES % 7.3 % (2.0-8.0); NEUTROPHILS % 79.3 % (40.0-76.0); PLATELET 183 x1000/uL (130-400); RED BLOOD CELL COUNT 5.48 mill/uL (4.2-5.4); RED CELL DISTRIBUTION WIDTH 19.8 % (11.6-14.6)
[2020-11-10] MEDS: IPRATROPIUM/ALBUTEROL 0.5-3(2.5)MG/3ML NEB HHN SCH ×3 (08:26→21:19)
[2020-11-10] MEDS: PANTOPRAZOLE SODIUM 40 MG/VIAL IV SCH (08:51)
[2020-11-10] MEDS: FUROSEMIDE 100MG/10ML VIAL IVP SCH ×2 (08:51→20:26)
[2020-11-10] MEDS: ENOXAPARIN 40MG/0.4ML SYR SUBCUT SCH (08:53)
[2020-11-10] MEDS ORDERED: FUROSEMIDE 40MG/4ML VIAL IVP SCH (09:00)
[2020-11-10 09:03] LABS: *AMPHETAMINES SCREEN URINE NEGATIVE (NEGATIVE); *BARBITURATES SCREEN URINE NEGATIVE (NEGATIVE); *BENZODIAZEPINES SCREEN URINE NEGATIVE (NEGATIVE); *COCAINE SCREEN URINE PRESUMTIVE POSITIVE (NEGATIVE); METHADONE URINE SCREEN NEGATIVE (NEGATIVE)
[2020-11-10 09:04] LABS: CANNABINOID URINE SCREEN NEGATIVE (NEGATIVE); OPIATES URINE SCREEN NEGATIVE (NEGATIVE); PHENCYCLIDINE URINE SCREEN NEGATIVE (NEGATIVE)
[2020-11-10 09:19] LABS: BG BASE EXCESS 3.6 mmol/L (-2.0-2.0); BG CARBOXYHEMOGLOBIN 1.2 % (0.5-1.5); BG DEOXYHEMOGLOBIN 10.1 % (0.0-5.0); BG FRACTION INSPIRED OXYGEN 100; BG HCO3 ACT 27.8 mmol/L (22.0-26.0); BG METHEMOGLOBIN 0.2 % (0.0-1.5); BG OXYGEN SATURATION 89.8 % (92.0-98.5); BG OXYHEMOGLOBIN 88.5 % (94.0-97.0); BG PCO2 40.4 mmHg (35.0-45.0); BG PH 7.455 (7.350-7.450); BG PO2 58.6 mmHg (75.0-100.0); BG SAMPLE SITE RIGHT RADIAL; BG TOTAL HEMOGLOBIN 16.6 g/dL (12.0-18.0); BG TOTAL RESPIRATORY RATE 18 b/min; BG VENT MODE VENT- PRVC
[2020-11-10] MEDS: LACTULOSE 20G/30ML UDC PO SCH ×2 (14:14→21:10)
[2020-11-10] MEDS ORDERED: PROPOFOL 10MG/ML 100ML 100 ML IV PRN (14:30)
[2020-11-10] MEDS ORDERED: NOREPINEPHRINE 8MG/250ML PMX 250 ML IV PRN (20:30)
[2020-11-11] VITALS (96 sets, daily range): BP systolic 85–146; BP diastolic 51–111
[2020-11-11] MEDS: PIPERACILLIN/TAZOBACTAM 3.375 G in DEXTROSE 5% WATER 50 ML IV SCH ×2 (00:04→12:18)
[2020-11-11] MEDS: PROPOFOL 10MG/ML 100ML 100 ML IV PRN ×5 (01:18→21:30)
[2020-11-11] MEDS: IPRATROPIUM/ALBUTEROL 0.5-3(2.5)MG/3ML NEB HHN SCH ×5 (01:51→21:24)
[2020-11-11] MEDS: LACTULOSE 20G/30ML UDC PO SCH (05:10)
[2020-11-11 05:29] LABS: EOSINOPHILS % 1.4 % (0.0-5.0); HEMATOCRIT. 46.7 % (36.0-48.0); HEMOGLOBIN. 15.5 g/dL (12.0-16.0); MEAN CORPUSCULAR HEMOGLOBIN 28.4 pg (28.0-32.0); MEAN CORPUSCULAR VOLUME 85.5 fL (81.0-99.0); MEAN PLATELET VOLUME 7.6 fl (7.4-10.4); MONOCYTES % 6.9 % (2.0-8.0); NEUTROPHILS % 69.7 % (40.0-76.0); PLATELET 189 x1000/uL (130-400); RED BLOOD CELL COUNT 5.46 mill/uL (4.2-5.4); RED CELL DISTRIBUTION WIDTH 20.3 % (11.6-14.6)
[2020-11-11 05:42] LABS: PHOSPHORUS 6.4 mg/dL (2.5-4.9)
[2020-11-11] MEDS: ENOXAPARIN 40MG/0.4ML SYR SUBCUT SCH (08:11)
[2020-11-11] MEDS: FUROSEMIDE 100MG/10ML VIAL IVP SCH ×2 (08:11→20:14)
[2020-11-11] MEDS: PANTOPRAZOLE SODIUM 40 MG/VIAL IV SCH (08:11)
[2020-11-11] MEDS: MIDODRINE HCL 5MG TABLET PO SCH ×3 (08:11→16:13)
[2020-11-11] MEDS: FENTANYL CITRATE 2,500 MCG in SODIUM CHLORIDE 0.9% 200 ML IV PRN (08:12)
[2020-11-11 10:12] LABS: BG BASE EXCESS 3.8 mmol/L (-2.0-2.0); BG DEOXYHEMOGLOBIN 6.2 % (0.0-5.0); BG FRACTION INSPIRED OXYGEN 100; BG HCO3 ACT 30.6 mmol/L (22.0-26.0); BG METHEMOGLOBIN 0.2 % (0.0-1.5); BG OXYGEN SATURATION 93.7 % (92.0-98.5); BG OXYHEMOGLOBIN 92.6 % (94.0-97.0); BG PCO2 53.7 mmHg (35.0-45.0); BG PH 7.373 (7.350-7.450); BG PO2 74.2 mmHg (75.0-100.0); BG SAMPLE SITE RIGHT BRACHIAL; BG TOTAL HEMOGLOBIN 16.6 g/dL (12.0-18.0); BG TOTAL RESPIRATORY RATE 14 b/min; BG VENT MODE VENT- PRVC
[2020-11-11] MEDS ORDERED: BISACODYL 5MG TABLET PO PRN (10:30)
[2020-11-11] MEDS: DOCUSATE SODIUM SUGAR FREE 100MG/10ML UDC NG SCH (10:51)
[2020-11-12] VITALS (96 sets, daily range): BP systolic 80–123; BP diastolic 43–93
[2020-11-12] MEDS: PIPERACILLIN/TAZOBACTAM 3.375 G in DEXTROSE 5% WATER 50 ML IV SCH ×2 (00:55→12:55)
[2020-11-12] MEDS: IPRATROPIUM/ALBUTEROL 0.5-3(2.5)MG/3ML NEB HHN SCH ×6 (01:08→21:38)
[2020-11-12] MEDS: PROPOFOL 10MG/ML 100ML 100 ML IV PRN ×2 (02:46→11:04)
[2020-11-12 05:22] LABS: BASOPHILS % 0.9 % (0.0-2.0); EOSINOPHILS % 1.9 % (0.0-5.0); HEMATOCRIT. 46.4 % (36.0-48.0); HEMOGLOBIN. 15.4 g/dL (12.0-16.0); LYMPHOCYTES % 13.2 % (20.0-50.0); MEAN CORPUSCULAR HEMOGLOBIN 27.9 pg (28.0-32.0); MEAN CORPUSCULAR VOLUME 83.8 fL (81.0-99.0); MEAN PLATELET VOLUME 7.4 fl (7.4-10.4); MONOCYTES % 5.6 % (2.0-8.0); NEUTROPHILS % 78.4 % (40.0-76.0); PLATELET 153 x1000/uL (130-400); RED BLOOD CELL COUNT 5.54 mill/uL (4.2-5.4); RED CELL DISTRIBUTION WIDTH 19.8 % (11.6-14.6)
[2020-11-12 05:36] LABS: PHOSPHORUS 5.5 mg/dL (2.5-4.9)
[2020-11-12 08:00] LABS: BG BASE EXCESS 6.9 mmol/L (-2.0-2.0); BG CARBOXYHEMOGLOBIN 0.2 % (0.5-1.5); BG DEOXYHEMOGLOBIN 11.8 % (0.0-5.0); BG HCO3 ACT 34.3 mmol/L (22.0-26.0); BG METHEMOGLOBIN 0.3 % (0.0-1.5); BG OXYGEN SATURATION 88.1 % (92.0-98.5); BG OXYHEMOGLOBIN 87.7 % (94.0-97.0); BG PCO2 59.4 mmHg (35.0-45.0); BG PO2 58.7 mmHg (75.0-100.0); BG SAMPLE SITE RIGHT BRACHIAL; BG TOTAL HEMOGLOBIN 16.4 g/dL (12.0-18.0); BG VENT MODE VENT- PRVC
[2020-11-12] MEDS ORDERED: POTASSIUM CHLORIDE 20MEQ/PACKET PO SCH (08:00)
[2020-11-12] MEDS: DOCUSATE SODIUM SUGAR FREE 100MG/10ML UDC NG SCH (08:31)
[2020-11-12] MEDS: MIDODRINE HCL 5MG TABLET PO SCH ×3 (08:31→16:54)
[2020-11-12] MEDS: FUROSEMIDE 100MG/10ML VIAL IVP SCH ×2 (08:31→20:49)
[2020-11-12] MEDS: PANTOPRAZOLE SODIUM 40 MG/VIAL IV SCH (08:31)
[2020-11-12] MEDS: ENOXAPARIN 40MG/0.4ML SYR SUBCUT SCH (08:39)
[2020-11-12] MEDS ORDERED: PROPOFOL 10MG/ML 100ML 100 ML IV PRN (14:15)
[2020-11-12] MEDS: FENTANYL CITRATE 2,500 MCG in SODIUM CHLORIDE 0.9% 200 ML IV PRN ×2 (14:16→23:50)
[2020-11-12] MEDS: MIDAZOLAM HCL 100 MG in SODIUM CHLORIDE 0.9% 80 ML IV PRN (15:17)
[2020-11-12] MEDS: NOREPINEPHRINE 8 MG in DEXTROSE 5% WATER 250 ML IV PRN (18:15)
[2020-11-13] VITALS (92 sets, daily range): BP systolic 86–131; BP diastolic 53–71
[2020-11-13] MEDS: PIPERACILLIN/TAZOBACTAM 3.375 G in DEXTROSE 5% WATER 50 ML IV SCH ×4 (00:54→21:41)
[2020-11-13] MEDS: IPRATROPIUM/ALBUTEROL 0.5-3(2.5)MG/3ML NEB HHN SCH ×6 (01:10→20:20)
[2020-11-13] MEDS: MIDAZOLAM HCL 100 MG in SODIUM CHLORIDE 0.9% 80 ML IV PRN ×2 (03:32→21:44)
[2020-11-13 05:01] LABS: BASOPHILS % 0.5 % (0.0-2.0); EOSINOPHILS % 1.6 % (0.0-5.0); HEMATOCRIT. 49.4 % (36.0-48.0); HEMOGLOBIN. 15.7 g/dL (12.0-16.0); LYMPHOCYTES % 8.9 % (20.0-50.0); MEAN CORPUSCULAR HEMOGLOBIN 27.1 pg (28.0-32.0); MEAN CORPUSCULAR VOLUME 85.4 fL (81.0-99.0); MEAN PLATELET VOLUME 7.5 fl (7.4-10.4); MONOCYTES % 5.2 % (2.0-8.0); NEUTROPHILS % 83.8 % (40.0-76.0); PLATELET 161 x1000/uL (130-400); RED BLOOD CELL COUNT 5.78 mill/uL (4.2-5.4); RED CELL DISTRIBUTION WIDTH 20.4 % (11.6-14.6)
[2020-11-13 05:09] LABS: PHOSPHORUS 4.4 mg/dL (2.5-4.9)
[2020-11-13] MEDS: PANTOPRAZOLE SODIUM 40 MG/VIAL IV SCH (08:38)
[2020-11-13] MEDS: DOCUSATE SODIUM SUGAR FREE 100MG/10ML UDC NG SCH (08:38)
[2020-11-13] MEDS: FUROSEMIDE 100MG/10ML VIAL IVP SCH (08:39)
[2020-11-13] MEDS: MIDODRINE HCL 5MG TABLET PO SCH ×3 (08:39→16:58)
[2020-11-13] MEDS: ENOXAPARIN 100MG/ML SYR SUBCUT SCH (09:00)
[2020-11-13 09:06] LABS: BG DEOXYHEMOGLOBIN 14.5 % (0.0-5.0); BG FRACTION INSPIRED OXYGEN 100; BG HCO3 ACT 39.1 mmol/L (22.0-26.0); BG METHEMOGLOBIN 0.1 % (0.0-1.5); BG OXYGEN SATURATION 85.3 % (92.0-98.5); BG OXYHEMOGLOBIN 84.4 % (94.0-97.0); BG PCO2 58.5 mmHg (35.0-45.0); BG PH 7.443 (7.350-7.450); BG PO2 50.7 mmHg (75.0-100.0); BG SAMPLE SITE LEFT BRACHIAL; BG TOTAL HEMOGLOBIN 16.5 g/dL (12.0-18.0); BG VENT MODE PRVC
[2020-11-13] MEDS: FENTANYL CITRATE 2,500 MCG in SODIUM CHLORIDE 0.9% 200 ML IV PRN ×2 (09:43→18:22)
[2020-11-13] MEDS ORDERED: POTASSIUM CHLORIDE INJ 40 MEQ in DEXT 5% WATER 250 ML IV NR (10:00)
[2020-11-13 14:17] LABS: INR 1.2; PARTIAL THROMBOPLASTIN TIME 27.9 sec (23.4-31.0); PROTHROMBIN TIME 12.4 sec (9.6-11.0)
[2020-11-13] MEDS: NOREPINEPHRINE 8 MG in DEXTROSE 5% WATER 250 ML IV PRN (16:34)
[2020-11-14] VITALS (92 sets, daily range): BP systolic 81–138; BP diastolic 50–79
[2020-11-14] MEDS: IPRATROPIUM/ALBUTEROL 0.5-3(2.5)MG/3ML NEB HHN SCH ×6 (00:09→20:46)
[2020-11-14] MEDS: FENTANYL CITRATE 2,500 MCG in SODIUM CHLORIDE 0.9% 200 ML IV PRN ×3 (04:33→22:27)
[2020-11-14] MEDS: PIPERACILLIN/TAZOBACTAM 3.375 G in DEXTROSE 5% WATER 50 ML IV SCH ×2 (05:29→14:35)
[2020-11-14 06:07] LABS: BASOPHILS % 0.7 % (0.0-2.0); EOSINOPHILS % 1.9 % (0.0-5.0); HEMATOCRIT. 49.1 % (36.0-48.0); HEMOGLOBIN. 15.9 g/dL (12.0-16.0); LYMPHOCYTES % 9.1 % (20.0-50.0); MEAN CORPUSCULAR HEMOGLOBIN 27.9 pg (28.0-32.0); MEAN PLATELET VOLUME 8.5 fl (7.4-10.4); MONOCYTES % 8.2 % (2.0-8.0); NEUTROPHILS % 80.1 % (40.0-76.0); PLATELET 140 x1000/uL (130-400); RED BLOOD CELL COUNT 5.71 mill/uL (4.2-5.4); RED CELL DISTRIBUTION WIDTH 19.8 % (11.6-14.6)
[2020-11-14 06:10] LABS: PHOSPHORUS 4.4 mg/dL (2.5-4.9)
[2020-11-14] MEDS: ENOXAPARIN 100MG/ML SYR SUBCUT SCH (08:30)
[2020-11-14] MEDS: PANTOPRAZOLE SODIUM 40 MG/VIAL IV SCH (08:35)
[2020-11-14] MEDS: DOCUSATE SODIUM SUGAR FREE 100MG/10ML UDC NG SCH (08:35)
[2020-11-14] MEDS: MIDODRINE HCL 5MG TABLET PO SCH ×3 (08:36→17:58)
[2020-11-14 08:48] LABS: BG BASE EXCESS 13.8 mmol/L (-2.0-2.0); BG CARBOXYHEMOGLOBIN 1.5 % (0.5-1.5); BG DEOXYHEMOGLOBIN 6.9 % (0.0-5.0); BG HCO3 ACT 42.5 mmol/L (22.0-26.0); BG METHEMOGLOBIN 0.3 % (0.0-1.5); BG OXYHEMOGLOBIN 91.3 % (94.0-97.0); BG PH 7.407 (7.350-7.450); BG PO2 67.6 mmHg (75.0-100.0); BG SAMPLE SITE RIGHT BRACHIAL; BG TOTAL HEMOGLOBIN 16.4 g/dL (12.0-18.0); BG VENT MODE VENT- PRVC
[2020-11-14] MEDS ORDERED: POTASSIUM CHLORIDE 20MEQ TABLET SR PO SCH (09:00)
[2020-11-14] MEDS: ENOXAPARIN 40MG/0.4ML SYR SUBCUT SCH (10:38)
[2020-11-14] MEDS: NOREPINEPHRINE 8 MG in DEXTROSE 5% WATER 250 ML IV PRN (12:09)
[2020-11-14] MEDS: MIDAZOLAM HCL 100 MG in SODIUM CHLORIDE 0.9% 80 ML IV PRN (15:40)
[2020-11-14] MEDS: FUROSEMIDE 40MG/4ML VIAL IVP SCH (17:57)
[2020-11-14] MEDS: ACETAMINOPHEN 650MG/20.3ML UDC PO PRN (22:10)
[2020-11-15] VITALS (96 sets, daily range): BP systolic 78–171; BP diastolic 48–121
[2020-11-15] MEDS: IPRATROPIUM/ALBUTEROL 0.5-3(2.5)MG/3ML NEB HHN SCH ×6 (01:29→20:22)
[2020-11-15 04:53] LABS: BASOPHILS % 0.9 % (0.0-2.0); EOSINOPHILS % 2.4 % (0.0-5.0); HEMATOCRIT. 49.9 % (36.0-48.0); HEMOGLOBIN. 15.7 g/dL (12.0-16.0); LYMPHOCYTES % 14.1 % (20.0-50.0); MEAN CORPUSCULAR HEMOGLOBIN 27.6 pg (28.0-32.0); MEAN CORPUSCULAR VOLUME 87.7 fL (81.0-99.0); MEAN PLATELET VOLUME 7.7 fl (7.4-10.4); MONOCYTES % 9.5 % (2.0-8.0); NEUTROPHILS % 73.1 % (40.0-76.0); PLATELET 137 x1000/uL (130-400); RED BLOOD CELL COUNT 5.69 mill/uL (4.2-5.4); RED CELL DISTRIBUTION WIDTH 19.9 % (11.6-14.6)
[2020-11-15 05:07] LABS: PHOSPHORUS 5.3 mg/dL (2.5-4.9)
[2020-11-15] MEDS: FUROSEMIDE 40MG/4ML VIAL IVP SCH (06:34)
[2020-11-15 07:58] LABS: BG BASE EXCESS 9.4 mmol/L (-2.0-2.0); BG CARBOXYHEMOGLOBIN 0.5 % (0.5-1.5); BG DEOXYHEMOGLOBIN 1.8 % (0.0-5.0); BG METHEMOGLOBIN 0.1 % (0.0-1.5); BG OXYGEN SATURATION 98.2 % (92.0-98.5); BG OXYHEMOGLOBIN 97.6 % (94.0-97.0); BG PCO2 66.9 mmHg (35.0-45.0); BG PH 7.372 (7.350-7.450); BG PO2 118.1 mmHg (75.0-100.0); BG SAMPLE SITE RIGHT RADIAL; BG TOTAL HEMOGLOBIN 16.6 g/dL (12.0-18.0); BG VENT MODE VENT- PRVC
[2020-11-15] MEDS: ENOXAPARIN 40MG/0.4ML SYR SUBCUT SCH (08:28)
[2020-11-15] MEDS: PANTOPRAZOLE SODIUM 40 MG/VIAL IV SCH (08:28)
[2020-11-15] MEDS: DOCUSATE SODIUM SUGAR FREE 100MG/10ML UDC NG SCH (08:29)
[2020-11-15] MEDS: MIDODRINE HCL 5MG TABLET PO SCH ×3 (08:29→17:41)
[2020-11-15] MEDS: FENTANYL CITRATE 2,500 MCG in SODIUM CHLORIDE 0.9% 200 ML IV PRN ×2 (08:30→21:31)
[2020-11-15] MEDS: MIDAZOLAM HCL 100 MG in SODIUM CHLORIDE 0.9% 80 ML IV PRN ×2 (08:43→14:09)
[2020-11-15] MEDS ORDERED: PIPERACILLIN/TAZOBACTAM 3.375 G in DEXTROSE 5% WATER 50 ML IV SCH (14:00)
[2020-11-15] MEDS: NOREPINEPHRINE 8 MG in DEXTROSE 5% WATER 250 ML IV PRN (17:42)
[2020-11-15] MEDS: MEROPENEM 1,000 MG in SODIUM CHLORIDE 0.9% 100 ML IV SCH (21:10)
[2020-11-16] VITALS (98 sets, daily range): BP systolic 81–151; BP diastolic 49–98
[2020-11-16] MEDS: IPRATROPIUM/ALBUTEROL 0.5-3(2.5)MG/3ML NEB HHN SCH ×6 (00:33→20:26)
[2020-11-16 05:29] LABS: BASOPHILS % 1.3 % (0.0-2.0); EOSINOPHILS % 3.4 % (0.0-5.0); HEMATOCRIT. 46.1 % (36.0-48.0); HEMOGLOBIN. 14.8 g/dL (12.0-16.0); LYMPHOCYTES % 17.9 % (20.0-50.0); MEAN CORPUSCULAR HEMOGLOBIN 27.6 pg (28.0-32.0); MEAN PLATELET VOLUME 8.1 fl (7.4-10.4); MONOCYTES % 10.6 % (2.0-8.0); NEUTROPHILS % 66.8 % (40.0-76.0); PLATELET 140 x1000/uL (130-400); RED BLOOD CELL COUNT 5.36 mill/uL (4.2-5.4); RED CELL DISTRIBUTION WIDTH 19.6 % (11.6-14.6)
[2020-11-16 05:45] LABS: PHOSPHORUS 4.2 mg/dL (2.5-4.9)
[2020-11-16] MEDS: DOCUSATE SODIUM SUGAR FREE 100MG/10ML UDC NG SCH (08:31)
[2020-11-16] MEDS: MEROPENEM 1,000 MG in SODIUM CHLORIDE 0.9% 100 ML IV SCH ×2 (08:31→20:47)
[2020-11-16] MEDS: PANTOPRAZOLE SODIUM 40 MG/VIAL IV SCH (08:32)
[2020-11-16] MEDS: MIDODRINE HCL 5MG TABLET PO SCH ×3 (08:32→17:52)
[2020-11-16] MEDS: ENOXAPARIN 40MG/0.4ML SYR SUBCUT SCH (08:32)
[2020-11-16] MEDS: MIDAZOLAM HCL 100 MG in SODIUM CHLORIDE 0.9% 80 ML IV PRN (08:33)
[2020-11-16 08:47] LABS: BG BASE EXCESS 14.3 mmol/L (-2.0-2.0); BG CARBOXYHEMOGLOBIN 1.4 % (0.5-1.5); BG DEOXYHEMOGLOBIN 7.3 % (0.0-5.0); BG FRACTION INSPIRED OXYGEN 100; BG METHEMOGLOBIN 0.3 % (0.0-1.5); BG OXYGEN SATURATION 92.6 % (92.0-98.5); BG PCO2 69.9 mmHg (35.0-45.0); BG PH 7.407 (7.350-7.450); BG PO2 67.1 mmHg (75.0-100.0); BG SAMPLE SITE RIGHT RADIAL; BG VENT MODE VENT - PRVC
[2020-11-16] MEDS: FENTANYL CITRATE 2,500 MCG in SODIUM CHLORIDE 0.9% 200 ML IV PRN (13:31)
[2020-11-16] MEDS: ACETAMINOPHEN 650MG/20.3ML UDC PO PRN (21:48)
[2020-11-16] MEDS: METHYLPREDNISOLONE SOD SUCC 125 MG/2 ML VIAL IV SCH (22:08)
[2020-11-17] VITALS (94 sets, daily range): BP systolic 93–136; BP diastolic 60–95
[2020-11-17] MEDS: IPRATROPIUM/ALBUTEROL 0.5-3(2.5)MG/3ML NEB HHN SCH ×6 (00:17→19:53)
[2020-11-17] MEDS: FENTANYL CITRATE 2,500 MCG in SODIUM CHLORIDE 0.9% 200 ML IV PRN ×2 (04:09→19:34)
[2020-11-17] MEDS: METHYLPREDNISOLONE SOD SUCC 125 MG/2 ML VIAL IV SCH ×3 (05:50→21:54)
[2020-11-17 06:20] LABS: PHOSPHORUS 4.2 mg/dL (2.5-4.9)
[2020-11-17] MEDS ORDERED: FUROSEMIDE 100MG/10ML VIAL IVP NR (07:45)
[2020-11-17] MEDS: MEROPENEM 1,000 MG in SODIUM CHLORIDE 0.9% 100 ML IV SCH ×2 (07:58→20:34)
[2020-11-17] MEDS: PANTOPRAZOLE SODIUM 40 MG/VIAL IV SCH (07:58)
[2020-11-17] MEDS: DOCUSATE SODIUM SUGAR FREE 100MG/10ML UDC NG SCH (07:59)
[2020-11-17] MEDS: ENOXAPARIN 40MG/0.4ML SYR SUBCUT SCH (07:59)
[2020-11-17] MEDS: MIDODRINE HCL 5MG TABLET PO SCH ×3 (07:59→18:04)
[2020-11-17 08:04] LABS: BG BASE EXCESS 8.7 mmol/L (-2.0-2.0); BG CARBOXYHEMOGLOBIN 0.8 % (0.5-1.5); BG DEOXYHEMOGLOBIN 6.4 % (0.0-5.0); BG METHEMOGLOBIN 0.5 % (0.0-1.5); BG OXYGEN SATURATION 93.5 % (92.0-98.5); BG OXYHEMOGLOBIN 92.3 % (94.0-97.0); BG PCO2 62.8 mmHg (35.0-45.0); BG PH 7.388 (7.350-7.450); BG PO2 71.9 mmHg (75.0-100.0); BG SAMPLE SITE RIGHT RADIAL; BG TOTAL HEMOGLOBIN 18.8 g/dL (12.0-18.0); BG VENT MODE VENT- PRVC
[2020-11-17] MEDS: NOREPINEPHRINE 8 MG in DEXTROSE 5% WATER 250 ML IV PRN ×2 (08:15→18:04)
[2020-11-17] MEDS: ACETAMINOPHEN 650MG/20.3ML UDC PO PRN ×3 (08:35→23:51)
[2020-11-17 09:54] LABS: BASOPHILS % 0.2 % (0.0-2.0); EOSINOPHILS % 0.1 % (0.0-5.0); LYMPHOCYTES % 7.4 % (20.0-50.0); MEAN CORPUSCULAR HEMOGLOBIN 27.2 pg (28.0-32.0); MEAN CORPUSCULAR VOLUME 88.6 fL (81.0-99.0); MEAN PLATELET VOLUME 8.3 fl (7.4-10.4); MONOCYTES % 2.5 % (2.0-8.0); NEUTROPHILS % 89.8 % (40.0-76.0); PLATELET 182 x1000/uL (130-400); RED BLOOD CELL COUNT 6.43 mill/uL (4.2-5.4); RED CELL DISTRIBUTION WIDTH 19.7 % (11.6-14.6)
[2020-11-17 10:02] LABS: HEMOGLOBIN. 17.5 g/dL (12.0-16.0)
[2020-11-17] MEDS: MIDAZOLAM HCL 100 MG in SODIUM CHLORIDE 0.9% 80 ML IV PRN (13:20)
[2020-11-17 15:18] LABS: T4 FREE 0.31 ng/dL (0.76-1.46)
[2020-11-17] MEDS ORDERED: BLOOD SUGAR DIAGNOSTIC STRIP TEST SCH (19:00)
[2020-11-17] MEDS ORDERED: INSULIN LISPRO 100 UNITS/ML SUBCUT SCH (19:00)
[2020-11-17] MEDS ORDERED: DEXTROSE 50% WATER 50ML SYRINGE IV PRN (19:00)
[2020-11-17] MEDS: BLOOD SUGAR DIAGNOSTIC STRIP TEST SCH (23:47)
[2020-11-17] MEDS: INSULIN LISPRO 100 UNITS/ML SUBCUT SCH (23:54)
[2020-11-18] VITALS (99 sets, daily range): BP systolic 70–176; BP diastolic 40–112
[2020-11-18] MEDS: IPRATROPIUM/ALBUTEROL 0.5-3(2.5)MG/3ML NEB HHN SCH ×5 (00:13→20:19)
[2020-11-18] MEDS: METHYLPREDNISOLONE SOD SUCC 125 MG/2 ML VIAL IV SCH (05:34)
[2020-11-18 05:55] LABS: BASOPHILS % 0.5 % (0.0-2.0); EOSINOPHILS % 0.1 % (0.0-5.0); HEMATOCRIT. 54.4 % (36.0-48.0); HEMOGLOBIN. 17.5 g/dL (12.0-16.0); LYMPHOCYTES % 9.5 % (20.0-50.0); MEAN CORPUSCULAR HEMOGLOBIN 28.3 pg (28.0-32.0); MEAN CORPUSCULAR VOLUME 88.3 fL (81.0-99.0); MEAN PLATELET VOLUME 9.2 fl (7.4-10.4); MONOCYTES % 3.4 % (2.0-8.0); NEUTROPHILS % 86.5 % (40.0-76.0); PLATELET 141 x1000/uL (130-400); RED BLOOD CELL COUNT 6.16 mill/uL (4.2-5.4); RED CELL DISTRIBUTION WIDTH 20.2 % (11.6-14.6)
[2020-11-18] MEDS: BLOOD SUGAR DIAGNOSTIC STRIP TEST SCH ×3 (06:03→18:19)
[2020-11-18] MEDS: INSULIN LISPRO 100 UNITS/ML SUBCUT SCH ×4 (06:04→23:44)
[2020-11-18 06:16] LABS: PHOSPHORUS 4.7 mg/dL (2.5-4.9)
[2020-11-18 09:04] LABS: BG BASE EXCESS 10.1 mmol/L (-2.0-2.0); BG CARBOXYHEMOGLOBIN 0.8 % (0.5-1.5); BG DEOXYHEMOGLOBIN 5.3 % (0.0-5.0); BG FRACTION INSPIRED OXYGEN 100; BG HCO3 ACT 38.1 mmol/L (22.0-26.0); BG METHEMOGLOBIN 0.3 % (0.0-1.5); BG OXYGEN SATURATION 94.6 % (92.0-98.5); BG OXYHEMOGLOBIN 93.6 % (94.0-97.0); BG PCO2 62.3 mmHg (35.0-45.0); BG PH 7.404 (7.350-7.450); BG PO2 75.7 mmHg (75.0-100.0); BG SAMPLE SITE LEFT BRACHIAL; BG TOTAL HEMOGLOBIN 17.4 g/dL (12.0-18.0); BG TOTAL RESPIRATORY RATE 18 b/min; BG VENT MODE VENT- PRVC
[2020-11-18] MEDS: PANTOPRAZOLE SODIUM 40 MG/VIAL IV SCH (09:22)
[2020-11-18] MEDS: MEROPENEM 1,000 MG in SODIUM CHLORIDE 0.9% 100 ML IV SCH ×2 (09:22→20:35)
[2020-11-18] MEDS: DOCUSATE SODIUM SUGAR FREE 100MG/10ML UDC NG SCH (09:22)
[2020-11-18] MEDS: MIDODRINE HCL 5MG TABLET PO SCH ×3 (09:22→17:09)
[2020-11-18] MEDS: ENOXAPARIN 40MG/0.4ML SYR SUBCUT SCH (09:23)
[2020-11-18] MEDS: ACETAMINOPHEN 650MG/20.3ML UDC PO PRN ×2 (09:23→14:57)
[2020-11-18] MEDS: FENTANYL CITRATE 2,500 MCG in SODIUM CHLORIDE 0.9% 200 ML IV PRN (10:45)
[2020-11-18] MEDS ORDERED: BISACODYL 10MG SUPP PR NR (11:00)
[2020-11-18] MEDS ORDERED: LACTULOSE 20G/30ML UDC PO NR (11:00)
[2020-11-18] MEDS ORDERED: LEVOTHYROXINE SODIUM 50MCG TABLET PO SCH (11:00)
[2020-11-18 13:07] LABS: ANTI-NUCLEAR ANTIBODIES DIRECT Negative (Negative)
[2020-11-18] MEDS: SILDENAFIL CITRATE 20MG TABLET PO SCH ×2 (14:00→21:12)
[2020-11-18] MEDS: METHYLPREDNISOLONE SOD SUCC 40 MG/ML VIAL IV SCH ×2 (14:57→21:15)
[2020-11-18] MEDS ORDERED: VANCOMYCIN 1500MG in DEXTROSE 5% WATER 250ML IV NR (18:00)
[2020-11-18] MEDS: MIDAZOLAM HCL 100 MG in SODIUM CHLORIDE 0.9% 80 ML IV PRN (20:54)
[2020-11-19] VITALS (99 sets, daily range): BP systolic 78–122; BP diastolic 51–84
[2020-11-19] MEDS: IPRATROPIUM/ALBUTEROL 0.5-3(2.5)MG/3ML NEB HHN SCH ×6 (00:24→19:55)
[2020-11-19] MEDS: BLOOD SUGAR DIAGNOSTIC STRIP TEST SCH ×5 (00:42→23:36)
[2020-11-19] MEDS: FENTANYL CITRATE 2,500 MCG in SODIUM CHLORIDE 0.9% 200 ML IV PRN ×2 (01:06→15:05)
[2020-11-19] MEDS: METHYLPREDNISOLONE SOD SUCC 40 MG/ML VIAL IV SCH ×3 (05:50→21:55)
[2020-11-19 05:51] LABS: HEMATOCRIT. 49.8 % (36.0-48.0); HEMOGLOBIN. 15.8 g/dL (12.0-16.0); MEAN CORPUSCULAR HEMOGLOBIN 27.5 pg (28.0-32.0); MEAN CORPUSCULAR VOLUME 86.7 fL (81.0-99.0); RED BLOOD CELL COUNT 5.75 mill/uL (4.2-5.4); RED CELL DISTRIBUTION WIDTH 20.1 % (11.6-14.6)
[2020-11-19] MEDS: SILDENAFIL CITRATE 20MG TABLET PO SCH (05:51)
[2020-11-19] MEDS: LEVOTHYROXINE SODIUM 50MCG TABLET PO SCH (05:51)
[2020-11-19] MEDS: INSULIN LISPRO 100 UNITS/ML SUBCUT SCH ×4 (05:57→23:36)
[2020-11-19 06:24] LABS: PHOSPHORUS 4.8 mg/dL (2.5-4.9)
[2020-11-19 07:59] LABS: PLATELET ESTIMATE NORMAL
[2020-11-19 08:00] LABS: MEAN PLATELET VOLUME 9.2 fl (7.4-10.4)
[2020-11-19 08:01] LABS: PLATELET 168 x1000/uL (130-400)
[2020-11-19] MEDS: PANTOPRAZOLE SODIUM 40 MG/VIAL IV SCH (08:34)
[2020-11-19] MEDS: MEROPENEM 1,000 MG in SODIUM CHLORIDE 0.9% 100 ML IV SCH ×2 (08:34→20:04)
[2020-11-19] MEDS: ENOXAPARIN 40MG/0.4ML SYR SUBCUT SCH (08:34)
[2020-11-19] MEDS: MIDODRINE HCL 5MG TABLET PO SCH ×3 (08:35→17:29)
[2020-11-19] MEDS: DOCUSATE SODIUM SUGAR FREE 100MG/10ML UDC NG SCH (08:35)
[2020-11-19 09:24] LABS: BG BASE EXCESS 9.5 mmol/L (-2.0-2.0); BG CARBOXYHEMOGLOBIN 1.2 % (0.5-1.5); BG DEOXYHEMOGLOBIN 5.4 % (0.0-5.0); BG FRACTION INSPIRED OXYGEN 100; BG METHEMOGLOBIN 0.3 % (0.0-1.5); BG OXYGEN SATURATION 94.5 % (92.0-98.5); BG OXYHEMOGLOBIN 93.1 % (94.0-97.0); BG PCO2 48.8 mmHg (35.0-45.0); BG PH 7.473 (7.350-7.450); BG SAMPLE SITE RIGHT RADIAL; BG TOTAL HEMOGLOBIN 16.9 g/dL (12.0-18.0); BG TOTAL RESPIRATORY RATE 25 b/min; BG VENT MODE VENT- PRVC
[2020-11-19] MEDS: NOREPINEPHRINE 8 MG in DEXTROSE 5% WATER 250 ML IV PRN (12:11)
[2020-11-19] MEDS: MIDAZOLAM HCL 100 MG in SODIUM CHLORIDE 0.9% 80 ML IV PRN (15:04)
[2020-11-19 15:11] LABS: ANTI-MYELOPEROXIDASE AB < 9.0 U/mL (0.0-9.0); ANTI-PROTEINASE 3 ABS < 3.5 U/mL (0.0-3.5)
[2020-11-19] MEDS: ACETYLCYSTEINE 100MG/ML 10% VIAL 4ML INH SCH (16:40)
[2020-11-19] MEDS: ACETAMINOPHEN 650MG/20.3ML UDC PO PRN ×2 (18:33→23:50)
[2020-11-19 22:15] LABS: BG BASE EXCESS 8.7 mmol/L (-2.0-2.0); BG CARBOXYHEMOGLOBIN 0.5 % (0.5-1.5); BG DEOXYHEMOGLOBIN 15.2 % (0.0-5.0); BG FRACTION INSPIRED OXYGEN 100; BG METHEMOGLOBIN 0.4 % (0.0-1.5); BG OXYGEN SATURATION 84.7 % (92.0-98.5); BG OXYHEMOGLOBIN 83.9 % (94.0-97.0); BG PCO2 56.9 mmHg (35.0-45.0); BG PH 7.419 (7.350-7.450); BG PO2 51.4 mmHg (75.0-100.0); BG SAMPLE SITE LEFT FEMORAL; BG TOTAL HEMOGLOBIN 19.2 g/dL (12.0-18.0); BG VENT MODE COOL AEROSOL
[2020-11-20] VITALS (87 sets, daily range): BP systolic 83–180; BP diastolic 56–98
[2020-11-20] MEDS: ACETYLCYSTEINE 100MG/ML 10% VIAL 4ML INH SCH ×3 (00:52→16:14)
[2020-11-20] MEDS: IPRATROPIUM/ALBUTEROL 0.5-3(2.5)MG/3ML NEB HHN SCH ×6 (00:53→20:54)
[2020-11-20] MEDS: ACETAMINOPHEN 650MG/20.3ML UDC PO PRN ×2 (04:23→13:08)
[2020-11-20] MEDS: FENTANYL CITRATE 2,500 MCG in SODIUM CHLORIDE 0.9% 200 ML IV PRN (04:49)
[2020-11-20] MEDS: BLOOD SUGAR DIAGNOSTIC STRIP TEST SCH ×3 (05:42→17:29)
[2020-11-20] MEDS: LEVOTHYROXINE SODIUM 50MCG TABLET PO SCH (05:46)
[2020-11-20] MEDS: METHYLPREDNISOLONE SOD SUCC 40 MG/ML VIAL IV SCH ×3 (05:46→22:44)
[2020-11-20] MEDS: INSULIN LISPRO 100 UNITS/ML SUBCUT SCH ×3 (05:47→17:29)
[2020-11-20] MEDS: MIDAZOLAM HCL 100 MG in SODIUM CHLORIDE 0.9% 80 ML IV PRN (07:37)
[2020-11-20] MEDS: NOREPINEPHRINE 8 MG in DEXTROSE 5% WATER 250 ML IV PRN (07:38)
[2020-11-20] MEDS: MEROPENEM 1,000 MG in SODIUM CHLORIDE 0.9% 100 ML IV SCH ×2 (07:58→19:46)
[2020-11-20] MEDS: DOCUSATE SODIUM SUGAR FREE 100MG/10ML UDC NG SCH (08:01)
[2020-11-20] MEDS: MIDODRINE HCL 5MG TABLET PO SCH ×3 (08:01→17:28)
[2020-11-20] MEDS: PANTOPRAZOLE SODIUM 40 MG/VIAL IV SCH (08:01)
[2020-11-20] MEDS: ENOXAPARIN 30MG/0.3ML SYR SUBCUT SCH (08:14)
[2020-11-20 09:40] LABS: BG BASE EXCESS 6.4 mmol/L (-2.0-2.0); BG CARBOXYHEMOGLOBIN 0.4 % (0.5-1.5); BG DEOXYHEMOGLOBIN 11.2 % (0.0-5.0); BG FRACTION INSPIRED OXYGEN 100; BG HCO3 ACT 33.6 mmol/L (22.0-26.0); BG METHEMOGLOBIN 0.5 % (0.0-1.5); BG OXYGEN SATURATION 88.7 % (92.0-98.5); BG OXYHEMOGLOBIN 87.9 % (94.0-97.0); BG PCO2 55.8 mmHg (35.0-45.0); BG PH 7.398 (7.350-7.450); BG PO2 59.1 mmHg (75.0-100.0); BG SAMPLE SITE LEFT BRACHIAL; BG TOTAL HEMOGLOBIN 19.2 g/dL (12.0-18.0); BG TOTAL RESPIRATORY RATE 24 b/min; BG VENT MODE VENT- PRVC
[2020-11-20 10:05] LABS: HEMATOCRIT. 55.8 % (36.0-48.0); HEMOGLOBIN. 17.4 g/dL (12.0-16.0); MEAN CORPUSCULAR HEMOGLOBIN 27.6 pg (28.0-32.0); MEAN CORPUSCULAR VOLUME 88.6 fL (81.0-99.0); MEAN PLATELET VOLUME 9.5 fl (7.4-10.4); PLATELET 175 x1000/uL (130-400); RED CELL DISTRIBUTION WIDTH 19.7 % (11.6-14.6)
[2020-11-20 10:16] LABS: PHOSPHORUS 6.3 mg/dL (2.5-4.9)
[2020-11-20 12:29] LABS: PLATELET ESTIMATE NORMAL
[2020-11-20] MEDS: METOCLOPRAMIDE HCL 10MG/2ML VIAL IV SCH ×2 (13:06→17:29)
[2020-11-20 13:11] LABS: CYTOPLASMIC C-ANCA <1:20 titer (Neg:<1:20); PERINUCLEAR P-ANCA <1:20 titer (Neg:<1:20)
[2020-11-20] MEDS ORDERED: VANCOMYCIN 500 MG PREMIX 100 ML IV NR (18:00)
[2020-11-20] MEDS: AZITHROMYCIN 500 MG in DEXT 5% WATER 250 ML IV SCH (20:59)
[2020-11-21] VITALS (90 sets, daily range): BP systolic 66–137; BP diastolic 46–89
[2020-11-21] MEDS: ACETYLCYSTEINE 100MG/ML 10% VIAL 4ML INH SCH ×3 (00:28→17:34)
[2020-11-21] MEDS: IPRATROPIUM/ALBUTEROL 0.5-3(2.5)MG/3ML NEB HHN SCH ×6 (00:28→19:56)
[2020-11-21] MEDS: NOREPINEPHRINE 8 MG in DEXTROSE 5% WATER 250 ML IV PRN ×4 (00:52→18:56)
[2020-11-21] MEDS: METOCLOPRAMIDE HCL 10MG/2ML VIAL IV SCH ×5 (00:52→23:33)
[2020-11-21] MEDS: BLOOD SUGAR DIAGNOSTIC STRIP TEST SCH ×4 (00:53→19:26)
[2020-11-21] MEDS: MIDAZOLAM HCL 100 MG in SODIUM CHLORIDE 0.9% 80 ML IV PRN ×2 (01:56→16:30)
[2020-11-21] MEDS: ACETAMINOPHEN 650MG/20.3ML UDC PO PRN ×3 (03:49→20:34)
[2020-11-21] MEDS: FENTANYL CITRATE 2,500 MCG in SODIUM CHLORIDE 0.9% 200 ML IV PRN (04:21)
[2020-11-21] MEDS: METHYLPREDNISOLONE SOD SUCC 40 MG/ML VIAL IV SCH ×3 (06:00→20:35)
[2020-11-21] MEDS: INSULIN LISPRO 100 UNITS/ML SUBCUT SCH ×4 (06:00→19:27)
[2020-11-21] MEDS: LEVOTHYROXINE SODIUM 50MCG TABLET PO SCH (06:01)
[2020-11-21] MEDS: MEROPENEM 1,000 MG in SODIUM CHLORIDE 0.9% 100 ML IV SCH (09:23)
[2020-11-21] MEDS: ENOXAPARIN 30MG/0.3ML SYR SUBCUT SCH (10:02)
[2020-11-21] MEDS: MIDODRINE HCL 5MG TABLET PO SCH ×3 (10:02→18:11)
[2020-11-21] MEDS: DOCUSATE SODIUM SUGAR FREE 100MG/10ML UDC NG SCH (10:03)
[2020-11-21] MEDS: PANTOPRAZOLE SODIUM 40 MG/VIAL IV SCH (10:03)
[2020-11-21 10:06] LABS: BG BASE EXCESS 5.5 mmol/L (-2.0-2.0); BG CARBOXYHEMOGLOBIN 0.8 % (0.5-1.5); BG DEOXYHEMOGLOBIN 0.3 % (0.0-5.0); BG FRACTION INSPIRED OXYGEN 100; BG METHEMOGLOBIN 0.7 % (0.0-1.5); BG OXYGEN SATURATION 99.7 % (92.0-98.5); BG OXYHEMOGLOBIN 98.2 % (94.0-97.0); BG PCO2 47.3 mmHg (35.0-45.0); BG PH 7.435 (7.350-7.450); BG PO2 196.4 mmHg (75.0-100.0); BG SAMPLE SITE RIGHT RADIAL; BG TOTAL HEMOGLOBIN 18.4 g/dL (12.0-18.0); BG VENT MODE VENT - PRVC
[2020-11-21 11:19] LABS: HEMATOCRIT. 52.7 % (36.0-48.0); HEMOGLOBIN. 16.3 g/dL (12.0-16.0); MEAN CORPUSCULAR HEMOGLOBIN 27.1 pg (28.0-32.0); MEAN CORPUSCULAR VOLUME 87.3 fL (81.0-99.0); MEAN PLATELET VOLUME 10.6 fl (7.4-10.4); PLATELET 192 x1000/uL (130-400); RED BLOOD CELL COUNT 6.04 mill/uL (4.2-5.4); RED CELL DISTRIBUTION WIDTH 19.9 % (11.6-14.6)
[2020-11-21 14:24] LABS: PLATELET ESTIMATE NORMAL
[2020-11-21] MEDS ORDERED: SODIUM POLYSTYRENE SULFONATE 15 G/60 ML BOT NG NR ×2 (17:41→22:45)
[2020-11-21] MEDS ORDERED: VANCOMYCIN 750 MG PREMIX 150 ML IV NR (18:00)
[2020-11-21] MEDS: AZITHROMYCIN 500 MG in DEXT 5% WATER 250 ML IV SCH (20:35)
[2020-11-22] VITALS (88 sets, daily range): BP systolic 73–188; BP diastolic 41–130
[2020-11-22] MEDS: BLOOD SUGAR DIAGNOSTIC STRIP TEST SCH ×4 (00:01→17:44)
[2020-11-22] MEDS: INSULIN LISPRO 100 UNITS/ML SUBCUT SCH ×4 (00:04→17:46)
[2020-11-22] MEDS: IPRATROPIUM/ALBUTEROL 0.5-3(2.5)MG/3ML NEB HHN SCH ×6 (00:06→19:50)
[2020-11-22] MEDS: ACETYLCYSTEINE 100MG/ML 10% VIAL 4ML INH SCH ×3 (00:07→16:21)
[2020-11-22 05:02] LABS: HEMATOCRIT. 47.9 % (36.0-48.0); HEMOGLOBIN. 14.9 g/dL (12.0-16.0); MEAN CORPUSCULAR HEMOGLOBIN 27.1 pg (28.0-32.0); MEAN CORPUSCULAR VOLUME 87.1 fL (81.0-99.0); MEAN PLATELET VOLUME 10.7 fl (7.4-10.4); PLATELET 180 x1000/uL (130-400); RED CELL DISTRIBUTION WIDTH 19.6 % (11.6-14.6)
[2020-11-22] MEDS: METHYLPREDNISOLONE SOD SUCC 40 MG/ML VIAL IV SCH ×3 (05:28→23:00)
[2020-11-22] MEDS: LEVOTHYROXINE SODIUM 50MCG TABLET PO SCH (05:28)
[2020-11-22] MEDS: METOCLOPRAMIDE HCL 10MG/2ML VIAL IV SCH ×3 (05:28→17:50)
[2020-11-22] MEDS: MIDODRINE HCL 5MG TABLET PO SCH ×3 (08:31→17:50)
[2020-11-22] MEDS: ENOXAPARIN 30MG/0.3ML SYR SUBCUT SCH (08:31)
[2020-11-22] MEDS: NOREPINEPHRINE 8 MG in DEXTROSE 5% WATER 250 ML IV PRN (08:32)
[2020-11-22] MEDS: DOCUSATE SODIUM SUGAR FREE 100MG/10ML UDC NG SCH (08:33)
[2020-11-22] MEDS: PANTOPRAZOLE SODIUM 40 MG/VIAL IV SCH (08:33)
[2020-11-22] MEDS: ACETAMINOPHEN 650MG SUPP PR PRN ×2 (08:34→16:12)
[2020-11-22] MEDS ORDERED: LIDOCAINE HCL 1% 20ML VIAL (Pyxis) INJ ONE (08:42)
[2020-11-22] MEDS: MEROPENEM 1000MG in NORMAL SALINE 100ML IV SCH (09:00)
[2020-11-22 11:19] LABS: PLATELET ESTIMATE NORMAL
[2020-11-22] MEDS: FENTANYL CITRATE 2,500 MCG in SODIUM CHLORIDE 0.9% 200 ML IV PRN (14:26)
[2020-11-22] MEDS: MIDAZOLAM HCL 100 MG in SODIUM CHLORIDE 0.9% 80 ML IV PRN (15:45)
[2020-11-22 15:50] LABS: BG BASE EXCESS 6.3 mmol/L (-2.0-2.0); BG CARBOXYHEMOGLOBIN 1.2 % (0.5-1.5); BG DEOXYHEMOGLOBIN 2.4 % (0.0-5.0); BG FRACTION INSPIRED OXYGEN 80; BG HCO3 ACT 31.3 mmol/L (22.0-26.0); BG METHEMOGLOBIN 0.4 % (0.0-1.5); BG OXYGEN SATURATION 97.6 % (92.0-98.5); BG PCO2 45.7 mmHg (35.0-45.0); BG PH 7.453 (7.350-7.450); BG PO2 102.5 mmHg (75.0-100.0); BG SAMPLE SITE RIGHT RADIAL; BG TOTAL HEMOGLOBIN 15.5 g/dL (12.0-18.0); BG VENT MODE PRVC
[2020-11-22] MEDS: AZITHROMYCIN 500 MG in DEXT 5% WATER 250 ML IV SCH (22:30)
[2020-11-23] VITALS (95 sets, daily range): BP systolic 80–135; BP diastolic 52–92
[2020-11-23] MEDS: IPRATROPIUM/ALBUTEROL 0.5-3(2.5)MG/3ML NEB HHN SCH ×6 (00:10→20:38)
[2020-11-23] MEDS: ACETYLCYSTEINE 100MG/ML 10% VIAL 4ML INH SCH ×3 (00:10→16:26)
[2020-11-23] MEDS: METOCLOPRAMIDE HCL 10MG/2ML VIAL IV SCH ×4 (00:21→18:12)
[2020-11-23] MEDS: BLOOD SUGAR DIAGNOSTIC STRIP TEST SCH ×4 (00:21→18:12)
[2020-11-23] MEDS: INSULIN LISPRO 100 UNITS/ML SUBCUT SCH ×4 (00:24→18:14)
[2020-11-23] MEDS: METHYLPREDNISOLONE SOD SUCC 40 MG/ML VIAL IV SCH ×2 (05:05→18:13)
[2020-11-23] MEDS: LEVOTHYROXINE SODIUM 50MCG TABLET PO SCH (05:32)
[2020-11-23] MEDS: NOREPINEPHRINE 8 MG in DEXTROSE 5% WATER 250 ML IV PRN (05:34)
[2020-11-23] MEDS: FENTANYL CITRATE 2,500 MCG in SODIUM CHLORIDE 0.9% 200 ML IV PRN ×2 (05:34→18:14)
[2020-11-23] MEDS: MIDAZOLAM HCL 100 MG in SODIUM CHLORIDE 0.9% 80 ML IV PRN (05:35)
[2020-11-23 05:50] LABS: HEMATOCRIT. 43.2 % (36.0-48.0); HEMOGLOBIN. 13.7 g/dL (12.0-16.0); MEAN CORPUSCULAR HEMOGLOBIN 27.4 pg (28.0-32.0); MEAN CORPUSCULAR VOLUME 86.5 fL (81.0-99.0); MEAN PLATELET VOLUME 10.6 fl (7.4-10.4); PLATELET 212 x1000/uL (130-400); RED CELL DISTRIBUTION WIDTH 19.6 % (11.6-14.6)
[2020-11-23] MEDS: ACETAMINOPHEN 650MG SUPP PR PRN (06:19)
[2020-11-23 06:25] LABS: CHLORIDE 101 mEq/L (98-107)
[2020-11-23] MEDS: ENOXAPARIN 30MG/0.3ML SYR SUBCUT SCH (09:00)
[2020-11-23 09:14] LABS: BG BASE EXCESS 2.8 mmol/L (-2.0-2.0); BG DEOXYHEMOGLOBIN 0.7 % (0.0-5.0); BG FRACTION INSPIRED OXYGEN 80; BG HCO3 ACT 28.1 mmol/L (22.0-26.0); BG METHEMOGLOBIN 0.3 % (0.0-1.5); BG OXYGEN SATURATION 99.3 % (92.0-98.5); BG PCO2 45.5 mmHg (35.0-45.0); BG PH 7.408 (7.350-7.450); BG PO2 180.9 mmHg (75.0-100.0); BG SAMPLE SITE RIGHT RADIAL; BG TOTAL HEMOGLOBIN 14.4 g/dL (12.0-18.0); BG VENT MODE VENT - PRVC
[2020-11-23] MEDS: PANTOPRAZOLE SODIUM 40 MG/VIAL IV SCH (09:52)
[2020-11-23] MEDS: DOCUSATE SODIUM SUGAR FREE 100MG/10ML UDC NG SCH (09:52)
[2020-11-23] MEDS: MEROPENEM 1000MG in NORMAL SALINE 100ML IV SCH (09:53)
[2020-11-23] MEDS: MIDODRINE HCL 5MG TABLET PO SCH ×3 (09:53→18:13)
[2020-11-23 10:22] LABS: PLATELET ESTIMATE NORMAL
[2020-11-23] MEDS ORDERED: BISACODYL 10MG SUPP PR SCH (11:00)
[2020-11-23] MEDS: PHENYLEPHRINE 50 MG in DEXT 5% WATER 245 ML IV PRN ×2 (13:18→22:55)
[2020-11-23] MEDS ORDERED: VANCOMYCIN 1 G PREMIX 200 ML IV NR (14:00)
[2020-11-23 14:09] LABS: HEPATITIS B SURFACE ANTIGEN NEGATIVE
[2020-11-23 17:54] LABS: HEPATITIS B SURFACE ANTIGEN NEGATIVE
[2020-11-23] MEDS: ACETAMINOPHEN 650MG/20.3ML UDC PO PRN (18:13)
[2020-11-23] MEDS: AZITHROMYCIN 500 MG in DEXT 5% WATER 250 ML IV SCH (20:15)
[2020-11-24] VITALS (98 sets, daily range): BP systolic 73–121; BP diastolic 37–89
[2020-11-24] MEDS: BLOOD SUGAR DIAGNOSTIC STRIP TEST SCH ×5 (00:13→23:37)
[2020-11-24] MEDS: METOCLOPRAMIDE HCL 10MG/2ML VIAL IV SCH ×5 (00:16→23:46)
[2020-11-24] MEDS: INSULIN LISPRO 100 UNITS/ML SUBCUT SCH ×5 (00:17→23:47)
[2020-11-24] MEDS: IPRATROPIUM/ALBUTEROL 0.5-3(2.5)MG/3ML NEB HHN SCH ×6 (02:14→20:41)
[2020-11-24] MEDS: ACETYLCYSTEINE 100MG/ML 10% VIAL 4ML INH SCH ×2 (02:20→08:57)
[2020-11-24] MEDS: LEVOTHYROXINE SODIUM 50MCG TABLET PO SCH (05:56)
[2020-11-24 06:04] LABS: HEMATOCRIT. 41.4 % (36.0-48.0); HEMOGLOBIN. 13.1 g/dL (12.0-16.0); MEAN CORPUSCULAR HEMOGLOBIN 27.3 pg (28.0-32.0); MEAN CORPUSCULAR VOLUME 86.2 fL (81.0-99.0); RED CELL DISTRIBUTION WIDTH 19.5 % (11.6-14.6)
[2020-11-24] MEDS: MIDAZOLAM HCL 100 MG in SODIUM CHLORIDE 0.9% 80 ML IV PRN (06:47)
[2020-11-24] MEDS: FENTANYL CITRATE 2,500 MCG in SODIUM CHLORIDE 0.9% 200 ML IV PRN (07:02)
[2020-11-24] MEDS: PHENYLEPHRINE 50 MG in DEXT 5% WATER 245 ML IV PRN ×3 (07:59→21:22)
[2020-11-24] MEDS: PANTOPRAZOLE SODIUM 40 MG/VIAL IV SCH (09:27)
[2020-11-24] MEDS: MEROPENEM 1000MG in NORMAL SALINE 100ML IV SCH (09:27)
[2020-11-24] MEDS: DOCUSATE SODIUM SUGAR FREE 100MG/10ML UDC NG SCH (09:27)
[2020-11-24] MEDS: METHYLPREDNISOLONE SOD SUCC 40 MG/ML VIAL IV SCH ×2 (09:27→18:34)
[2020-11-24] MEDS: MIDODRINE HCL 5MG TABLET PO SCH ×3 (09:28→18:34)
[2020-11-24 10:20] LABS: PLATELET ESTIMATE NORMAL
[2020-11-24 10:21] LABS: MEAN PLATELET VOLUME 10.9 fl (7.4-10.4)
[2020-11-24 10:22] LABS: PLATELET 179 x1000/uL (130-400)
[2020-11-24 11:00] LABS: BG DEOXYHEMOGLOBIN 2.6 % (0.0-5.0); BG HCO3 ACT 25.4 mmol/L (22.0-26.0); BG METHEMOGLOBIN 0.2 % (0.0-1.5); BG OXYGEN SATURATION 97.4 % (92.0-98.5); BG OXYHEMOGLOBIN 96.2 % (94.0-97.0); BG PCO2 44.3 mmHg (35.0-45.0); BG PH 7.377 (7.350-7.450); BG PO2 104.7 mmHg (75.0-100.0); BG SAMPLE SITE LEFT RADIAL; BG TOTAL HEMOGLOBIN 14.4 g/dL (12.0-18.0); BG VENT MODE VENT- PRVC
[2020-11-24 12:05] LABS: CHLORIDE 105 mEq/L (98-107)
[2020-11-24 12:11] LABS: PHOSPHORUS 6.7 mg/dL (2.5-4.9)
[2020-11-24] MEDS: ACETAMINOPHEN 650MG/20.3ML UDC PO PRN (21:02)
[2020-11-24] MEDS: AZITHROMYCIN 500 MG in DEXT 5% WATER 250 ML IV SCH (21:02)
[2020-11-24 21:22] LABS: HEPATITIS B SURFACE ANTIGEN NEGATIVE
[2020-11-25] VITALS (89 sets, daily range): BP systolic 44–127; BP diastolic 20–95
[2020-11-25] MEDS: IPRATROPIUM/ALBUTEROL 0.5-3(2.5)MG/3ML NEB HHN SCH ×5 (00:25→16:29)
[2020-11-25] MEDS: PHENYLEPHRINE 50 MG in DEXT 5% WATER 245 ML IV PRN ×4 (01:07→14:53)
[2020-11-25] MEDS: FENTANYL CITRATE 2,500 MCG in SODIUM CHLORIDE 0.9% 200 ML IV PRN ×2 (03:14→18:45)
[2020-11-25] MEDS: ACETAMINOPHEN 650MG/20.3ML UDC PO PRN ×2 (04:01→17:49)
[2020-11-25 06:03] LABS: HEMATOCRIT. 42.3 % (36.0-48.0); HEMOGLOBIN. 12.6 g/dL (12.0-16.0); MEAN CORPUSCULAR HEMOGLOBIN 27.1 pg (28.0-32.0); MEAN CORPUSCULAR VOLUME 90.7 fL (81.0-99.0); PLATELET 160 x1000/uL (130-400); RED BLOOD CELL COUNT 4.67 mill/uL (4.2-5.4); RED CELL DISTRIBUTION WIDTH 20.3 % (11.6-14.6)
[2020-11-25] MEDS: LEVOTHYROXINE SODIUM 50MCG TABLET PO SCH (06:24)
[2020-11-25] MEDS: METOCLOPRAMIDE HCL 10MG/2ML VIAL IV SCH ×3 (06:24→17:30)
[2020-11-25] MEDS: INSULIN LISPRO 100 UNITS/ML SUBCUT SCH ×3 (06:25→17:32)
[2020-11-25] MEDS: BLOOD SUGAR DIAGNOSTIC STRIP TEST SCH ×3 (06:43→17:34)
[2020-11-25] MEDS: DOCUSATE SODIUM SUGAR FREE 100MG/10ML UDC NG SCH (08:39)
[2020-11-25] MEDS: METHYLPREDNISOLONE SOD SUCC 40 MG/ML VIAL IV SCH ×2 (08:39→17:30)
[2020-11-25] MEDS: MEROPENEM 1000MG in NORMAL SALINE 100ML IV SCH (08:39)
[2020-11-25] MEDS: PANTOPRAZOLE SODIUM 40 MG/VIAL IV SCH (08:39)
[2020-11-25] MEDS: MIDODRINE HCL 5MG TABLET PO SCH ×3 (08:40→17:34)
[2020-11-25] MEDS: MIDAZOLAM HCL 100 MG in SODIUM CHLORIDE 0.9% 80 ML IV PRN (08:51)
[2020-11-25] MEDS ORDERED: ASCORBIC ACID 500 MG TABLET PO SCH (09:00)
[2020-11-25] MEDS ORDERED: FOLIC ACID/VITAMIN B COMP W-C TABLET PO SCH (09:00)
[2020-11-25] MEDS ORDERED: ZINC SULFATE 220 MG ( 50 ) CAPSULE PO SCH (09:00)
[2020-11-25 09:01] LABS: BG DEOXYHEMOGLOBIN 3.5 % (0.0-5.0); BG FRACTION INSPIRED OXYGEN 60; BG HCO3 ACT 24.1 mmol/L (22.0-26.0); BG METHEMOGLOBIN 0.2 % (0.0-1.5); BG OXYGEN SATURATION 96.5 % (92.0-98.5); BG OXYHEMOGLOBIN 95.3 % (94.0-97.0); BG PCO2 51.6 mmHg (35.0-45.0); BG PH 7.288 (7.350-7.450); BG PO2 94.9 mmHg (75.0-100.0); BG SAMPLE SITE RIGHT RADIAL; BG TOTAL HEMOGLOBIN 14.3 g/dL (12.0-18.0); BG VENT MODE VENT - PRVC
[2020-11-25] MEDS ORDERED: DEXTROSE 50% WATER 50ML SYRINGE IV ONE (09:09)
[2020-11-25] MEDS ORDERED: SODIUM BICARBONATE 8.4% 1 MEQ/ML 50ML SYR IV ONE (09:09)
[2020-11-25] MEDS ORDERED: CALCIUM CHLORIDE 1GM/10ML SYR IV ONE (09:09)
[2020-11-25] MEDS ORDERED: EPINEPHRINE 0.1MG/ML (1:10,000) 10ML SYR ONE (09:09)
[2020-11-25 10:24] LABS: NUCLEATED RED BLOOD CELLS 1 /100 WBC; PLATELET ESTIMATE NORMAL
[2020-11-25] MEDS: SEVELAMER CARBONATE 800 MG TABLET PO SCH ×2 (12:34→17:34)
[2020-11-25] MEDS ORDERED: VANCOMYCIN 750 MG PREMIX 150 ML IV SCH (14:00)
[2020-11-25] MEDS ORDERED: COLISTIMETHATE SODIUM 150MG/VIAL INH SCH (15:00)
[2020-11-25] MEDS ORDERED: PHENYLEPHRINE 100 MG in DEXT 5% WATER 240 ML IV PRN (17:00)
[2020-11-25] MEDS: AZITHROMYCIN 500 MG in DEXT 5% WATER 250 ML IV SCH (20:08)
[2020-11-25] MEDS: NOREPINEPHRINE 8 MG in DEXTROSE 5% WATER 250 ML IV PRN (22:00)
[2020-11-25] MEDS ORDERED: VASOPRESSIN 20 UNIT in SODIUM CHLORIDE 0.9% 99 ML IV PRN (22:15)
[2020-11-26] MEDS ORDERED: CALCIUM CHLORIDE 1GM/10ML SYR IV ONE (09:08)
[2020-11-26] MEDS ORDERED: SODIUM BICARBONATE 8.4% 1 MEQ/ML 50ML SYR IV ONE (09:08)
[2020-11-26] MEDS ORDERED: EPINEPHRINE 0.1MG/ML (1:10,000) 10ML SYR ONE (09:08)
== END 2020-11-25 22:47 | DRG 720 ==
LOC: ER 04:54 → MICUSO 12:30 → EDBEDREQSVC 12:30 → 8WST 21:23 → 7WST 23:41 → MICUSO 11-09 11:51 → MICUNO 11-15 13:04
PROVIDERS: ADMIT Internal Medicine; ATTEND Internal Medicine
PROC: 5A1955Z Respiratory Ventilation, Greater than 96 Consecutive Hours (ICD-10-PCS; principal; 2020-11-09)
PROC: 0BH17EZ Insertion of Endotracheal Airway into Trachea, Via Natural or Artificial Opening (ICD-10-PCS; 2020-11-09)
PROC: 02HV33Z Insertion of Infusion Device into Superior Vena Cava, Percutaneous Approach (ICD-10-PCS; 2020-11-10)
PROC: B548ZZA Ultrasonography of Superior Vena Cava, Guidance (ICD-10-PCS; 2020-11-10)
PROC: 0W993ZZ Drainage of Right Pleural Cavity, Percutaneous Approach (ICD-10-PCS; 2020-11-14)
PROC: 02HV33Z Insertion of Infusion Device into Superior Vena Cava, Percutaneous Approach (ICD-10-PCS; 2020-11-20)
PROC: B548ZZA Ultrasonography of Superior Vena Cava, Guidance (ICD-10-PCS; 2020-11-20)
PROC: 5A1D70Z Performance of Urinary Filtration, Intermittent, Less than 6 Hours Per Day (ICD-10-PCS; 2020-11-20)
PROC: 5A1D70Z Performance of Urinary Filtration, Intermittent, Less than 6 Hours Per Day (ICD-10-PCS; 2020-11-21)
PROC: 02HV33Z Insertion of Infusion Device into Superior Vena Cava, Percutaneous Approach (ICD-10-PCS; 2020-11-22)
PROC: 5A1D70Z Performance of Urinary Filtration, Intermittent, Less than 6 Hours Per Day (ICD-10-PCS; 2020-11-22)
PROC: 5A1D70Z Performance of Urinary Filtration, Intermittent, Less than 6 Hours Per Day (ICD-10-PCS; 2020-11-24)
PROC: 5A12012 Performance of Cardiac Output, Single, Manual (ICD-10-PCS; 2020-11-25)
PROC: 5A12012 Performance of Cardiac Output, Single, Manual (ICD-10-PCS; 2020-11-25)
PROC: 0W9B30Z Drainage of Left Pleural Cavity with Drainage Device, Percutaneous Approach (ICD-10-PCS; 2020-11-25)
DX: A41.9 Sepsis, unspecified organism (principal); N17.0 Acute kidney failure with tubular necrosis; R40.20 Unspecified coma; R65.21 Severe sepsis with septic shock; J69.0 Pneumonitis due to inhalation of food and vomit; G93.41 Metabolic encephalopathy; E72.20 Disorder of urea cycle metabolism, unspecified; I50.43 Acute on chronic combined systolic (congestive) and diastolic (congestive) heart failure; E43 Unspecified severe protein-calorie malnutrition; J80 Acute respiratory distress syndrome; I46.9 Cardiac arrest, cause unspecified; J15.5 Pneumonia due to Escherichia coli; N18.30 Chronic kidney disease, stage 3 unspecified; I42.9 Cardiomyopathy, unspecified; I27.20 Pulmonary hypertension, unspecified; E87.1 Hypo-osmolality and hyponatremia; E87.8 Other disorders of electrolyte and fluid balance, not elsewhere classified; E66.9 Obesity, unspecified; D64.9 Anemia, unspecified; L89.326 Pressure-induced deep tissue damage of left buttock; E87.0 Hyperosmolality and hypernatremia; L89.156 Pressure-induced deep tissue damage of sacral region; L89.896 Pressure-induced deep tissue damage of other site; L89.816 Pressure-induced deep tissue damage of head; F17.210 Nicotine dependence, cigarettes, uncomplicated; I08.1 Rheumatic disorders of both mitral and tricuspid valves; J91.8 Pleural effusion in other conditions classified elsewhere; I73.9 Peripheral vascular disease, unspecified; S80.812A Abrasion, left lower leg, initial encounter; X58.XXXA Exposure to other specified factors, initial encounter; I13.0 Hypertensive heart and chronic kidney disease with heart failure and stage 1 through stage 4 chronic kidney disease, or unspecified chronic kidney disease; E03.9 Hypothyroidism, unspecified; J44.0 Chronic obstructive pulmonary disease with (acute) lower respiratory infection; J93.9 Pneumothorax, unspecified; Z16.12 Extended spectrum beta lactamase (ESBL) resistance; Z20.822 Contact with and (suspected) exposure to COVID-19; Z82.49 Family history of ischemic heart disease and other diseases of the circulatory system; Z86.16 Personal history of COVID-19; Z79.899 Other long term (current) drug therapy; Y93.89 Activity, other specified; Y92.89 Other specified places as the place of occurrence of the external cause; Y99.8 Other external cause status; Z68.33 Body mass index [BMI] 33.0-33.9, adult
CPT/HCPCS: 32555; 36415; 36580; 36600; 71045; 71250; 71275; 73030; 76604; 76770; 76937; 80048; 80053; 80202; 80305; 81003; 82040; 82140; 82330; 82375; 82550; 82805; 82962; 83036; 83520; 83615; 83735; 83880; 84100; 84134; 84145; 84439; 84443; 84478; 84484; 85025; 85379; 86038; 86256; 86430; 86705; 86709; 86803; 87070; 87077; 87186; 87340; 87426; 88108; 88312; 92950; 93005; 93306; 93923; 93970; 94002; 94003; 94640; 99285; A6261; C1725; C1752; C1769; C9113; J0456; J0696; J0770; J1100; J1650; J1815; J1940; J2060; J2185; J2250; J2370; J2543; J2704; J2765; J2920; J2930; J3010; J3370; J3475; J3480; J3490; J7040; J7050; J7060; J7608; U0003; U0005; A4315